=== PATIENT | male | born 1945 | race Caucasian/White ===

== ENCOUNTER 2020-03-28 01:19 | Inpatient (IN) | payer MEDICARE, OTHER ==
[~2020-03-28] VITALS: Ht 165.1 cm; Wt 52.7 kg
[2020-03-28] MEDS ORDERED: ONDANSETRON PF 4 MG/2 ML VIAL. IVP ONE (02:00)
[2020-03-28] MEDS ORDERED: ASPIRIN CHEWABLE 81 MG TABLET. PO ONE (02:00)
--- NOTE | 2020-03-28 02:22 | RAD ---
EXAM: AP View of the chest DATE: 03/28/2020 1:25 AM INDICATION: Shortness of breath COMPARISON: No Prior FINDINGS: The heart is not enlarged. Mediastinal and hilar contours are stable. Nodular opacity retrocardiac left lung base. No pleural effusion or pneumothorax. Nondisplaced right posterolateral seventh rib fractures seen, likely chronic. IMPRESSION: 1. Nodular opacity retrocardiac left lung base. Recommend short interval follow-up radiographs to assess for resolution or further evaluation with nonemergent CT to exclude underlying mass. Electronically signed by: Gary Harris MD (03/28/2020 2:20 AM) [facility]
[2020-03-28] MEDS: MORPHINE SULFATE 2 MG/ML VIAL. IV/SQ PRN ×2 (02:24→05:56)
[2020-03-28 02:32] LABS: BASO # 0.1 x10^3/uL (0.0-0.2); BASO % 1 % (0-3); EOS # 0.2 x10^3/uL (0.0-0.7); EOS % 2 % (0-3); HEMATOCRIT 34.8 % (39.0-53.0); HEMOGLOBIN 11.5 g/dL (13.0-17.5); LYMPH # 1.1 x10^3/uL (1.0-4.8); LYMPH % 14 % (24-48); MEAN CORPUSCULAR HEMOGLOBIN 31 pg (25-35); MEAN CORPUSCULAR HGB CONC 33 g/dL (31-37); MEAN CORPUSCULAR VOLUME 92 fL (79-100); MONO # 0.4 x10^3/uL (0.0-1.1); MONO % 5 % (0-9); NEUT # 6.3 x10^3/uL (1.8-7.7); NEUT % 79 % (31-73); PLATELET COUNT 301 x10^3/uL (140-400); RED BLOOD COUNT 3.77 x10^6/uL (4.30-5.70); RED CELL DISTRIBUTION WIDTH 15.9 % (11.5-14.5)
[2020-03-28 02:41] LABS: CALCIUM 9.3 mg/dL (8.5-10.1); GFR 73.5; POTASSIUM 4.2 mmol/L (3.5-5.1)
[2020-03-28 02:46] LABS: ALBUMIN 3.2 g/dL (3.4-5.0); ALBUMIN/GLOBULIN RATIO 0.8 (1.0-1.7); MAGNESIUM 1.6 mg/dL (1.8-2.4); TOTAL BILIRUBIN 0.2 mg/dL (0.2-1.0); TOTAL PROTEIN 7.3 g/dL (6.4-8.2)
[2020-03-28 02:51] LABS: BILIRUBIN,URINE NEGATIVE (NEG); CLARITY,URINE CLEAR; COLOR,URINE YELLOW; NITRITE,URINE NEGATIVE (NEG); PH,URINE 5.5 (<5.0-8.0); PROTEIN,URINE NEGATIVE (NEG-TRACE); UROBILINOGEN,URINE 0.2 mg/dL (0.2 mg/dL)
[2020-03-28 03:01] LABS: SQUAMOUS EPITHELIAL CELL,UR OCC /LPF
[2020-03-28 03:02] LABS: AMORPHOUS SEDIMENT,UR PRESENT /HPF; BACTERIA,URINE 0 /HPF (0-FEW); RBC,URINE 0 /HPF (0-2); WBC,URINE OCC /HPF (0-4)
--- NOTE | 2020-03-28 03:38 | PHYS DOC ---
General Adult EDM: Chief Complaint: SHORTNESS OF BREATH HPI: HPI: Patient is a 73 year old male who presents with complaint of chest pain and shortness of breath that started earlier in the evening. Patient rates the pain in his chest at a 10 out of 10. Patient states that nothing improves this pain. Patient arrived via EMS from medical [place] and had just been discharged from [facility] [place]. [] Review of Systems: Review of Systems: Constitutional: Denies fever or chills. [] Respiratory: Complains of productive cough with shortness of breath. [] Cardiovascular: Complains of chest pain. [] GI: Denies abdominal pain, nausea, vomiting, bloody stools or diarrhea. [] Neurologic: Denies headache, focal weakness or sensory changes. [] A full 10 point review of systems has been reviewed and is otherwise negative. Heart Score: Risk Factors: Risk Factors: DM, Current or recent (<one month) smoker, HTN, HLP, family history of CAD, obesity. Risk Scores: Score 0 - 3: 2.5% MACE over next 6 weeks - Discharge Home Score 4 - 6: 20.3% MACE over next 6 weeks - Admit for Clinical Observation Score 7 - 10: 72.7% MACE over next 6 weeks - Early Invasive Strategies Current Medications: Current Medications Medications (Trade) Dose Ordered Sig/[facility] Start Time Stop Time Status Last Admin Dose Admin Aspirin (Aspirin Chewable) 324 mg 1X ONCE 03/28/20 02:00 03/28/20 02:01 DC 03/28/20 02:25 324 MG Morphine Sulfate (Morphine Sulfate) 2 mg PRN Q15MIN PRN 03/28/20 01:30 03/29/20 01:29 03/28/20 02:24 2 MG Ondansetron HCl (Zofran) 4 mg 1X ONCE 03/28/20 02:00 03/28/20 02:01 DC 03/28/20 02:24 4 MG Allergies: Allergies: Allergies Coded Allergies Type Severity Reaction Last Updated Verified Sulfa (Sulfonamide Antibiotics) Allergy Intermediate 03/28/20 Yes simvastatin Allergy Intermediate 03/28/20 Yes Physical Exam: PE: Constitutional: Well developed, well nourished, no acute distress, non-toxic appearance. [] HENT: Normocephalic, atraumatic, bilateral external ears normal, oropharynx moist, no oral exudates, nose normal. [] Eyes: PERRLA, EOMI, conjunctiva normal, no discharge. [] Neck: Normal range of motion, no tenderness, supple. [] Cardiovascular: Regular rate and rhythm [] Lungs & Thorax: Bilateral breath sounds clear to auscultation [] Abdomen: Bowel sounds normal, soft, no tenderness. [] Skin: Warm, dry, no erythema, no rash. [] Extremities: No tenderness, no cyanosis, no clubbing, ROM intact, no edema. [] Neurologic: Alert and oriented X 3, no focal deficits noted. [] Current Patient Data: Labs: Laboratory Tests Test 03/28/20 02:20 03/28/20 02:45 White Blood Count 8.0 x10^3/uL (4.0-11.0) Red Blood Count 3.77 x10^6/uL (4.30-5.70) L Hemoglobin 11.5 g/dL (13.0-17.5) L Hematocrit 34.8 % (39.0-53.0) L Mean Corpuscular Volume 92 fL (79-100) Mean Corpuscular Hemoglobin 31 pg (25-35) Mean Corpuscular Hemoglobin Concent 33 g/dL (31-37) Red Cell Distribution Width 15.9 % (11.5-14.5) H Platelet Count 301 x10^3/uL (140-400) Neutrophils (%) (Auto) 79 % (31-73) H Lymphocytes (%) (Auto) 14 % (24-48) L Monocytes (%) (Auto) 5 % (0-9) Eosinophils (%) (Auto) 2 % (0-3) Basophils (%) (Auto) 1 % (0-3) Neutrophils # (Auto) 6.3 x10^3/uL (1.8-7.7) Lymphocytes # (Auto) 1.1 x10^3/uL (1.0-4.8) Monocytes # (Auto) 0.4 x10^3/uL (0.0-1.1) Eosinophils # (Auto) 0.2 x10^3/uL (0.0-0.7) Basophils # (Auto) 0.1 x10^3/uL (0.0-0.2) Sodium Level 142 mmol/L (136-145) Potassium Level 4.2 mmol/L (3.5-5.1) Chloride Level 102 mmol/L (98-107) Carbon Dioxide Level 32 mmol/L (21-32) Anion Gap 8 (6-14) Blood Urea Nitrogen 22 mg/dL (8-26) Creatinine 1.0 mg/dL (0.7-1.3) Estimated GFR (Cockcroft-Gault) 73.5 BUN/Creatinine Ratio 22 (6-20) H Glucose Level 155 mg/dL (70-99) H Calcium Level 9.3 mg/dL (8.5-10.1) Magnesium Level 1.6 mg/dL (1.8-2.4) L Total Bilirubin 0.2 mg/dL (0.2-1.0) Aspartate Amino Transferase (AST) 32 U/L (15-37) Alanine Aminotransferase (ALT) 68 U/L (16-63) H Alkaline Phosphatase 176 U/L (46-116) H Troponin I Quantitative < 0.017 ng/mL (0.000-0.055) PC-Uex-A-Type Natriuretic Peptide 93 pg/mL (0-124) Total Protein 7.3 g/dL (6.4-8.2) Albumin 3.2 g/dL (3.4-5.0) L Albumin/Globulin Ratio 0.8 (1.0-1.7) L Lipase 41 U/L (73-393) L Urine Collection Type Unknown Urine Color Yellow Urine Clarity Clear Urine pH 5.5 (<5.0-8.0) Urine Specific [place] 1.020 (1.000-1.030) Urine Protein Negative mg/dL (NEG-TRACE) Urine Glucose (UA) Negative mg/dL (NEG) Urine Ketones (Stick) Trace mg/dL (NEG) Urine Blood Negative (NEG) Urine Nitrite Negative (NEG) Urine Bilirubin Negative (NEG) Urine Urobilinogen Dipstick 0.2 mg/dL (0.2 mg/dL) Urine Leukocyte Esterase Negative (NEG) Urine RBC 0 /HPF (0-2) Urine WBC Occ /HPF (0-4) Urine Squamous Epithelial Cells Occ /LPF Urine Amorphous Sediment Present /HPF Urine Bacteria 0 /HPF (0-FEW) Urine Mucus Slight /LPF Laboratory Tests 03/28/20 02:20 Laboratory Tests 03/28/20 02:20 Vital Signs: Vital Signs Date Time Temp Pulse Resp B/P (MAP) Pulse Ox O2 Delivery O2 Flow Rate FiO2 03/28/20 02:24 19 Nasal Cannula 2.0 03/28/20 01:20 98.3 103 154/74 (100) 88 98.3 EKG: EKG: [] Radiology/Procedures: Radiology/Procedures: []PROCEDURE: PORTABLE CHEST 1V EXAM: AP View of the chest DATE: 03/28/2020 1:25 AM INDICATION: Shortness of breath COMPARISON: No Prior FINDINGS: The heart is not enlarged. Mediastinal and hilar contours are stable. Nodular opacity retrocardiac left lung base. No pleural effusion or pneumothorax. Nondisplaced right posterolateral seventh rib fractures seen, likely chronic. IMPRESSION: 1. Nodular opacity retrocardiac left lung base. Recommend short interval follow-up radiographs to assess for resolution or further evaluation with nonemergent CT to exclude underlying mass. Electronically signed by: Gary Harris MD (03/28/2020 2:20 AM) [facility] Course & Med Decision Making: Course & Med Decision Making Pertinent Labs and Imaging studies reviewed. (See chart for details) [] Dragon Disclaimer: Dragon Disclaimer: This electronic medical record was generated, in whole or in part, using a voice recognition dictation system. Departure Departure Impression: Primary Impression: Chest pain Qualified Codes: R07.9 - Chest pain, unspecified Additional Impression: Person under investigation for COVID-19 Disposition: ADMITTED INPATIENT Admitting Physician: JOCELYNN Condition: IMPROVED Referrals: NO PCP (PCP) ANGELITA MEJIA Jr., DO Mar 28, 2020 03:38
[2020-03-28] MEDS ORDERED: NITROGLYCERIN SUBLINGUAL 0.4 MG BOTTLE OF 25. SL PRN (03:45)
[2020-03-28] MEDS ORDERED: ONDANSETRON PF 4 MG/2 ML VIAL. IV PRN (03:45)
[2020-03-28 05:25] VITALS: BP 143/74
--- NOTE | 2020-03-28 06:08 | EKG ---
[facility] [address] [place] [address] Test Date: 2020-03-28 Test Time: 01:30:43 Pat Name: BALJIT PERALES Department: Room: 3 1 Gender: M Developer Analyst: : 1947-01-26 Requested By: ANGELITA MEJIA Order Number: [id number] Reading MD: Mike Wright MD Measurements Intervals [place] Rate: 99 P: 33 WI: 136 QRS: -37 QRSD: 90 T: 66 QT: 350 QTc: 455 Interpretive Statements SINUS RHYTHM NON-SPECIFIC ST/T CHANGES Electronically Signed On 04-04-2020 9:59:56 CDT by Mike Wright MD
[2020-03-28 07:00] VITALS: BP_SYST 109; BP_SYST 130; BP_DIAS 59; BP_DIAS 76
--- NOTE | 2020-03-28 08:49 | PDOC2 ---
STEPHENIE LOVE PATTERN LEASE INSPECTOR 03/28/20 0849: CARDIAC CONSULT DATE OF CONSULT Date of Consult DATE: 03/28/20 TIME: 08:45 REASON FOR CONSULT Reason for Consult: Chest pain REFERRING PHYSICIAN Referring Physician: Harmony SOURCE Source: Chart review, Patient HISTORY OF PRESENT ILLNESS HISTORY OF PRESENT ILLNESS This is a 73 yo male admitted for complains of chest pain. I talked to him and he was just stuttering. Unclear what his mental baseline is as he could not tell me any details. He was also noted with SOA upon admission but so far he has not been having any chest pain and in no distress. Apparently he is known for significant anxiety diorder and actually has aopioid pump implant with dilaudid. He was recently discharge from [facility] and unclear why he was there as he could not provide any details. He was [facility] [place] [facility] which apprently per he stayed only for about 12 hours then was brought to [facility]. He is known for hospital hopping per . His troponin has been nml and no acute EKG changes. Per [facility] records he has hx of CAD but no noted records of echo nor ischemic workup. PAST MEDICAL HISTORY Cardiovascular: CAD, HTN, Hyperlipidemia, Other (venous insufficiency, lymphedema; PAD) Pulmonary: COPD CENTRAL NERVOUS SYSTEM: Periperal neuropathy Heme/Onc: Anemia NOS Psych: Anxiety Musculoskeletal: Osteoarthritis Renal/: Other (nephrolithiasis) Endocrine: Diabetes (2) Dermatology: Other (stasis dermatitis; sacral wound) PAST SURGICAL HISTORY Past Surgical History: Appendectomy, Arthroscopy (RAKA), Cholecystectomy, Other (vasectomy, penile implant?; left ureteral stent implant) FAMILY HISTORY Family History: Family History Unknown SOCIAL HISTORY Smoke: Quit ALCOHOL: none Lives: Jail CURRENT MEDICATIONS CURRENT MEDICATIONS Current Medications Medications (Trade) Dose Ordered Sig/Caitlyn Route PRN Reason Start Time Stop Time Status Last Admin Dose Admin Aspirin (Aspirin Chewable) 324 mg 1X ONCE PO 03/28/20 02:00 03/28/20 02:01 DC 03/28/20 02:25 Morphine Sulfate (Morphine Sulfate) 2 mg PRN Q15MIN PRN IV/SQ PAIN GREATER THAN 3/10 03/28/20 01:30 03/29/20 01:29 03/28/20 05:56 Ondansetron HCl (Zofran) 4 mg 1X ONCE IVP 03/28/20 02:00 03/28/20 02:01 DC 03/28/20 02:24 ALLERGIES ALLERGIES: Coded Allergies: Sulfa (Sulfonamide Antibiotics) (Verified Allergy, Intermediate, 03/28/20) simvastatin (Verified Allergy, Intermediate, 03/28/20) ROS Review of System unobtainable, pt appears to be selectively answering and currently stutterring. He was able to convey wanting pain medications to the PCP PHYSICAL EXAM General: Alert, No acute distress HEENT: Atraumatic, Mucous membr. moist/pink Lungs: Clear to auscultation, Normal air movement Heart: Regular rate (SR), Normal S1, Normal S2 Abdomen: Soft, Other (cachectic) Extremities: Other (RAKA, LLE brownish hyperpigmentation) Skin: Other (sacral wound) Neuro: Other (sttuters) Psych/Mental Status: Other (flat affect) MUSCULOSKELETAL: Osteoarthritic changes both hands VITALS/I&O VITALS/I&O: Vital Signs Date Time Temp Pulse Resp B/P (MAP) Pulse Ox O2 Delivery O2 Flow Rate FiO2 03/28/20 07:00 97.2 73 18 109/59 (76) 99 Nasal Cannula 2.0 97.2 I & O 03/27/20 03/27/20 03/28/20 15:00 23:00 07:00 Intake Total 50 ml Balance 50 ml LABS Lab: Laboratory Tests Test 03/28/20 02:20 03/28/20 02:45 03/28/20 06:40 White Blood Count 8.0 x10^3/uL (4.0-11.0) Red Blood Count 3.77 x10^6/uL (4.30-5.70) L Hemoglobin 11.5 g/dL (13.0-17.5) L Hematocrit 34.8 % (39.0-53.0) L Mean Corpuscular Volume 92 fL (79-100) Mean Corpuscular Hemoglobin 31 pg (25-35) Mean Corpuscular Hemoglobin Concent 33 g/dL (31-37) Red Cell Distribution Width 15.9 % (11.5-14.5) H Platelet Count 301 x10^3/uL (140-400) Neutrophils (%) (Auto) 79 % (31-73) H Lymphocytes (%) (Auto) 14 % (24-48) L Monocytes (%) (Auto) 5 % (0-9) Eosinophils (%) (Auto) 2 % (0-3) Basophils (%) (Auto) 1 % (0-3) Neutrophils # (Auto) 6.3 x10^3/uL (1.8-7.7) Lymphocytes # (Auto) 1.1 x10^3/uL (1.0-4.8) Monocytes # (Auto) 0.4 x10^3/uL (0.0-1.1) Eosinophils # (Auto) 0.2 x10^3/uL (0.0-0.7) Basophils # (Auto) 0.1 x10^3/uL (0.0-0.2) Sodium Level 142 mmol/L (136-145) Potassium Level 4.2 mmol/L (3.5-5.1) Chloride Level 102 mmol/L (98-107) Carbon Dioxide Level 32 mmol/L (21-32) Anion Gap 8 (6-14) Blood Urea Nitrogen 22 mg/dL (8-26) Creatinine 1.0 mg/dL (0.7-1.3) Estimated GFR (Cockcroft-Gault) 73.5 BUN/Creatinine Ratio 22 (6-20) H Glucose Level 155 mg/dL (70-99) H Calcium Level 9.3 mg/dL (8.5-10.1) Magnesium Level 1.6 mg/dL (1.8-2.4) L Total Bilirubin 0.2 mg/dL (0.2-1.0) Aspartate Amino Transferase (AST) 32 U/L (15-37) Alanine Aminotransferase (ALT) 68 U/L (16-63) H Alkaline Phosphatase 176 U/L (46-116) H Troponin I Quantitative < 0.017 ng/mL (0.000-0.055) < 0.017 ng/mL (0.000-0.055) RE-Tny-U-Type Natriuretic Peptide 93 pg/mL (0-124) Total Protein 7.3 g/dL (6.4-8.2) Albumin 3.2 g/dL (3.4-5.0) L Albumin/Globulin Ratio 0.8 (1.0-1.7) L Lipase 41 U/L (73-393) L Urine Collection Type Unknown Urine Color Yellow Urine Clarity Clear Urine pH 5.5 (<5.0-8.0) Urine Specific [place] 1.020 (1.000-1.030) Urine Protein Negative mg/dL (NEG-TRACE) Urine Glucose (UA) Negative mg/dL (NEG) Urine Ketones (Stick) Trace mg/dL (NEG) Urine Blood Negative (NEG) Urine Nitrite Negative (NEG) Urine Bilirubin Negative (NEG) Urine Urobilinogen Dipstick 0.2 mg/dL (0.2 mg/dL) Urine Leukocyte Esterase Negative (NEG) Urine RBC 0 /HPF (0-2) Urine WBC Occ /HPF (0-4) Urine Squamous Epithelial Cells Occ /LPF Urine Amorphous Sediment Present /HPF Urine Bacteria 0 /HPF (0-FEW) Urine Mucus Slight /LPF Laboratory Tests 03/28/20 02:20 Laboratory Tests 03/28/20 02:20 ASSESSMENT/PLAN ASSESSMENT/PLAN 1. Atypical chest pain: suspect anxiety and MSK, trops nml no EKG changes. no CP overnight 2. Chronic pain with implanted dilaudid intrathecal pump 3. 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 CAD: See below. Past stent 5. HTN: controlled 6. DM2/HLP 7. Covid PUI 8. Anxiety/panic disorder 9. ?noted with transient alteration of awareness? Recommendations 1. Continue secondary prevention. ASA/plavix 2. Will consider for TTE if negative for covid. Presently no cardiac symptoms and seems to be seeking opioid, continue to treat medically 3. Follow up with outpt automatic spooler operator Denise levin records reviewed Pt had PCI on 12/27/2018 noted with critical mid distal LAD lesion, widely patent proximal LAD with mild to moderate restenosis, moderately severe stenosis to proximal OMB 2, total occlusion of proximal mid RCA with left to right collateral filling a large territory distribution of the right posterior descending and lateral branches. He had PCI to mid to distal desceding LAD with overlapping CORNELIUS. A referral was also mad to Dr. Mohit Rob opinion on complex PCI of RCA and OMB. No further reports of intervention so assumed that this has been treated medically. EF at that time estimated at 55%. MALLIKA AVALOS MD 03/28/20 1982: CARDIAC CONSULT ASSESSMENT/PLAN ASSESSMENT/PLAN Patient seen and evaluated I agree with our nurse practitioners assessment and plan as above. Atypical chest pain. Normal troponin. No ischemic EKG changes. Catheterization records as noted above. Continue medical treatment. Normal ejection fraction at that time. Chronic pain syndrome as noted above. Hypertension. Controlled on present treatment. COVID testing pending. Thank you for allowing us to participate in the care of your patient. STEPHENIE LOVE APRN Mar 28, 2020 08:49 MALLIKA AVALOS MD Mar 28, 2020 17:38
[2020-03-28] MEDS ORDERED: ACET325T21 PO (09:05)
[2020-03-28] MEDS ORDERED: LEXAPRO5 MG PO (09:05)
[2020-03-28] MEDS ORDERED: HYDR4TAB PO (09:05)
[2020-03-28] MEDS ORDERED: ASPI-612 PO (09:05)
[2020-03-28] MEDS ORDERED: CARV3.1210 PO (09:05)
[2020-03-28] MEDS ORDERED: AMLO5TAB10 PO (09:05)
[2020-03-28] MEDS ORDERED: TRAZ-123 PO (09:05)
[2020-03-28] MEDS ORDERED: CLON-77 PO (09:05)
[2020-03-28] MEDS ORDERED: CLOP75TA PO (09:05)
[2020-03-28] MEDS ORDERED: GABA800T5 PO (09:05)
[2020-03-28] MEDS ORDERED: ACETAMINOPHEN 325 MG TABLET. PO PRN (09:15)
[2020-03-28] MEDS: clonazePAM 0.5 MG TABLET PO SCH ×2 (09:31→19:50)
[2020-03-28] MEDS: HYDROmorphone 4 MG TABLET PO SCH ×3 (09:32→19:50)
--- NOTE | 2020-03-28 09:37 | EKG ---
[facility] [address] [place] [address] Test Date: 2020-03-28 Test Time: 09:27:06 Pat Name: BALJIT PERALES Department: Room: 3 1 Gender: M Podiatric Medicine Doctor: JENAE : 1947-01-26 Requested By: STEPHENIE LOVE Order Number: [id number] Reading MD: Mike Wirght MD Measurements Intervals [place] Rate: 78 P: 90 TX: 138 QRS: -27 QRSD: 90 T: 60 QT: 382 QTc: 439 Interpretive Statements SINUS RHYTHM Electronically Signed On 04-04-2020 10:01:29 CDT by Mike Wright MD
--- NOTE | 2020-03-28 09:50 | NUR ---
Wound Care Wound Type/Assessment: wound photo assessed, as pt is Covid-pending. From photo, sacrococcygeal area pink and peeling, with scar tissue present, but no open areas noted. Will re-evaluate after testing comes back. Treatment Recommendations/Plan: Recommend Calazime cream or A&D ointment as barrier. Offloading surface/device: P500 bed, turn Q2 hours Recommended Referrals/Tests: N/A Discharge Recommendations for dressings: Calazime cream or A&D ointment as barrier
--- NOTE | 2020-03-28 10:18 | NUR ---
Wound Care Wound care consult for coccyx wound. Due to pending COVID 19 test, WC assessed wound via photograph. coccyx appears to be pink, dry and peeling with no open areas noted. Discussed with Joy DANGELO, continue calazime barrier cream unless area is peeling from dryness, then switch to A&D ointment. TQ2H and order P500 bed if needed. WC will reassess after C19 results are back.
[2020-03-28 11:00] VITALS: BP 113/59
--- NOTE | 2020-03-28 11:02 | NUR ---
SS following for discharge planning. SS reviewed pt chart and discussed with pt RN. Pt is from [facility], ; fax [phone]. SS contacted [facility] and was notified by Buck Iyer that pt was sent to the hospital the same day he admitted for prison and rehabilitation and was not technically admitted. He reported that pt was sent to them from [facility]. [facility] faxing records to unit. Pt is COVID19 pending. SS will continue to follow for discharge planning.
[2020-03-28] MEDS: GABAPENTIN 400 MG CAPSULE. PO SCH ×2 (13:34→19:50)
--- NOTE | 2020-03-28 14:14 | PDOC1 ---
History and Physical Date of Admission Date of Admission 03/28/2020 Identification/Chief Complaint Chief Complaint Chest pain as per ER Source Source: Chart review, Patient History of Present Illness History of Present Illness Patient is a 74-year-old gentleman who apparently had a very prolonged hospital stay at [facility] and was discharged to the medical [facility] where he was transferred and stayed approximately 12 hours before being transferred to our emergency department. Details of his hospital stay are obscure and the patient is a very poor historian at the present time the patient is laying in bed in no apparent distress patient mumbles the first initial words and subsequently was able to respond some questions very simple phrases. Patient was asked about chest discomfort which he denied at the present time he denied any cough sputum production no fever no chills no headache no cold-like symptoms. Patient did not have palpitations no nausea vomiting diarrhea no other complaints were v oiced except for generalized pain. The patient has a medical doctor md/medical director implanted in his abdominal cavity and he could not elaborate on what it was later we found out that it was a Dilaudid pump. Details of his medical history are obscure as stated before the patient is a quite poor poor historian he has right below-knee amputation and evidence of venous insufficiency changes on his skin on the left lower extremity. The patient does not present cyanosis and it is warm to touch the lower extremity. Patient was admitted at the request of the ER for chest pain evaluation despite the patient not having chest discomfort at the present time Of note the patient was quite animated when asked about questions or if there was something I needed to address and he immediately became quite clear in his speech and said: "can I have my pain medications back", plan of care explained in detail. no other concerns voiced Past Medical History Cardiovascular: CAD, HTN, Hyperlipidemia, Other (venous insufficiency, lymphedema; PAD) CENTRAL NERVOUS SYSTEM: Periperal neuropathy Psych: Anxiety Renal/: Other (nephrolithiasis) Endocrine: Diabetes (2) Dermatology: Other (stasis dermatitis) Past Surgical History Past Surgical History: Appendectomy, Arthroscopy (RAKA), Other (vasectomy, penile implant?; left ureteral stent implant) Current Problem List Problem List Problems Medical Problems: (1) Chest pain Status: Acute (2) Person under investigation for COVID-19 Status: Acute Current Medications Current Medications Current Medications Medications (Trade) Dose Ordered Sig/Caitlyn Start Time Stop Time Status Last Admin Dose Admin Acetaminophen (Tylenol) 650 mg PRN Q4HRS PRN 03/28/20 09:15 Amlodipine Besylate (Norvasc) 5 mg DAILY 03/29/20 09:00 Aspirin (Aspirin Chewable) 324 mg 1X ONCE 03/28/20 02:00 03/28/20 02:01 DC 03/28/20 02:25 324 MG Aspirin (Ecotrin) 81 mg DAILY 03/29/20 09:00 Carvedilol (Coreg) 3.125 mg BIDWMEALS 03/28/20 17:00 Citalopram Hydrobromide (CeleXA) 10 mg DAILY 03/29/20 09:00 Clonazepam (KlonoPIN) 0.5 mg BID 03/28/20 10:00 03/28/20 09:31 0.5 MG Clopidogrel Bisulfate (Plavix) 75 mg DAILY 03/29/20 09:00 Gabapentin (Neurontin) 400 mg TID 03/28/20 14:00 03/28/20 13:34 400 MG Hydromorphone HCl (Dilaudid) 2 mg TID 03/28/20 10:00 03/28/20 13:34 2 MG Morphine Sulfate (Morphine Sulfate) 2 mg PRN Q15MIN PRN 03/28/20 01:30 03/29/20 01:29 03/28/20 05:56 2 MG Nitroglycerin (Nitrostat) 0.4 mg PRN Q5MIN PRN 03/28/20 03:45 03/29/20 03:44 Ondansetron HCl (Zofran) 4 mg PRN Q8HRS PRN 03/28/20 03:45 03/29/20 03:44 Trazodone HCl (Desyrel) 200 mg QHS 03/28/20 21:00 Allergies Allergies Allergies Coded Allergies Type Severity Reaction Last Updated Verified Sulfa (Sulfonamide Antibiotics) Allergy Intermediate 03/28/20 Yes simvastatin Allergy Intermediate 03/28/20 Yes ROS Review of System CONSTITUTIONAL: No fever or chills EYES: No recent changes SKIN: No rash or itching CARDIOVASCULAR: No chest pain, syncope, palpitations, or edema RESPIRATORY: No SOB or cough GASTROINTESTINAL: No nausea, vomiting or abdominal pain NEUROLOGICAL: No headaches or weakness ENDOCRINE: No cold or heat intolerance GENITOURINARY: No urgency or frequency of urination MUSCULOSKELETAL: No back pain or joint pain LYMPHATICS: No enlarged lymph nodes PSYCHIATRIC: No anxiety or depression Physical Exam Physical Exam GEN.: No apparent distress. Alert and oriented in person. Thin looking HEENT: Head is normocephalic, atraumatic NECK: Supple. LUNGS: Clear to auscultation. HEART: RRR, S1, S2 present. Peripheral pulses intact ABDOMEN: Soft, nontender. Positive bowel sounds. EXTREMITIES: Without any cyanosis. Right below-knee amputation hyperpigmented discoloration over the left lower extremity NEUROLOGIC: Normal speech, normal tone cranial nerves II to XII intact no motor or sensory deficit PSYCHIATRIC: Normal affect, normal mood. SKIN: No ulcerations Vitals Vitals Vital Signs Date Time Temp Pulse Resp B/P (MAP) Pulse Ox O2 Delivery O2 Flow Rate FiO2 03/28/20 11:00 97.7 77 18 113/59 (77) 96 Nasal Cannula 2.0 97.7 Labs Labs Laboratory Tests Test 03/28/20 02:20 03/28/20 02:45 03/28/20 06:40 03/28/20 09:40 White Blood Count 8.0 x10^3/uL (4.0-11.0) Red Blood Count 3.77 x10^6/uL (4.30-5.70) Hemoglobin 11.5 g/dL (13.0-17.5) Hematocrit 34.8 % (39.0-53.0) Mean Corpuscular Volume 92 fL (79-100) Mean Corpuscular Hemoglobin 31 pg (25-35) Mean Corpuscular Hemoglobin Concent 33 g/dL (31-37) Red Cell Distribution Width 15.9 % (11.5-14.5) Platelet Count 301 x10^3/uL (140-400) Neutrophils (%) (Auto) 79 % (31-73) Lymphocytes (%) (Auto) 14 % (24-48) Monocytes (%) (Auto) 5 % (0-9) Eosinophils (%) (Auto) 2 % (0-3) Basophils (%) (Auto) 1 % (0-3) Neutrophils # (Auto) 6.3 x10^3/uL (1.8-7.7) Lymphocytes # (Auto) 1.1 x10^3/uL (1.0-4.8) Monocytes # (Auto) 0.4 x10^3/uL (0.0-1.1) Eosinophils # (Auto) 0.2 x10^3/uL (0.0-0.7) Basophils # (Auto) 0.1 x10^3/uL (0.0-0.2) Sodium Level 142 mmol/L (136-145) Potassium Level 4.2 mmol/L (3.5-5.1) Chloride Level 102 mmol/L (98-107) Carbon Dioxide Level 32 mmol/L (21-32) Anion Gap 8 (6-14) Blood Urea Nitrogen 22 mg/dL (8-26) Creatinine 1.0 mg/dL (0.7-1.3) Estimated GFR (Cockcroft-Gault) 73.5 BUN/Creatinine Ratio 22 (6-20) Glucose Level 155 mg/dL (70-99) Calcium Level 9.3 mg/dL (8.5-10.1) Magnesium Level 1.6 mg/dL (1.8-2.4) Total Bilirubin 0.2 mg/dL (0.2-1.0) Aspartate Amino Transf (AST/SGOT) 32 U/L (15-37) Alanine Aminotransferase (ALT/SGPT) 68 U/L (16-63) Alkaline Phosphatase 176 U/L (46-116) Troponin I Quantitative < 0.017 ng/mL (0.000-0.055) < 0.017 ng/mL (0.000-0.055) < 0.017 ng/mL (0.000-0.055) OJ-Uvc-S-Type Natriuretic Peptide 93 pg/mL (0-124) Total Protein 7.3 g/dL (6.4-8.2) Albumin 3.2 g/dL (3.4-5.0) Albumin/Globulin Ratio 0.8 (1.0-1.7) Lipase 41 U/L (73-393) Urine Collection Type Unknown Urine Color Yellow Urine Clarity Clear Urine pH 5.5 (<5.0-8.0) Urine Specific [place] 1.020 (1.000-1.030) Urine Protein Negative mg/dL (NEG-TRACE) Urine Glucose (UA) Negative mg/dL (NEG) Urine Ketones (Stick) Trace mg/dL (NEG) Urine Blood Negative (NEG) Urine Nitrite Negative (NEG) Urine Bilirubin Negative (NEG) Urine Urobilinogen Dipstick 0.2 mg/dL (0.2 mg/dL) Urine Leukocyte Esterase Negative (NEG) Urine RBC 0 /HPF (0-2) Urine WBC Occ /HPF (0-4) Urine Squamous Epithelial Cells Occ /LPF Urine Amorphous Sediment Present /HPF Urine Bacteria 0 /HPF (0-FEW) Urine Mucus Slight /LPF Laboratory Tests Test 03/28/20 02:20 03/28/20 02:45 03/28/20 06:40 03/28/20 09:40 White Blood Count 8.0 x10^3/uL (4.0-11.0) Red Blood Count 3.77 x10^6/uL (4.30-5.70) Hemoglobin 11.5 g/dL (13.0-17.5) Hematocrit 34.8 % (39.0-53.0) Mean Corpuscular Volume 92 fL (79-100) Mean Corpuscular Hemoglobin 31 pg (25-35) Mean Corpuscular Hemoglobin Concent 33 g/dL (31-37) Red Cell Distribution Width 15.9 % (11.5-14.5) Platelet Count 301 x10^3/uL (140-400) Neutrophils (%) (Auto) 79 % (31-73) Lymphocytes (%) (Auto) 14 % (24-48) Monocytes (%) (Auto) 5 % (0-9) Eosinophils (%) (Auto) 2 % (0-3) Basophils (%) (Auto) 1 % (0-3) Neutrophils # (Auto) 6.3 x10^3/uL (1.8-7.7) Lymphocytes # (Auto) 1.1 x10^3/uL (1.0-4.8) Monocytes # (Auto) 0.4 x10^3/uL (0.0-1.1) Eosinophils # (Auto) 0.2 x10^3/uL (0.0-0.7) Basophils # (Auto) 0.1 x10^3/uL (0.0-0.2) Sodium Level 142 mmol/L (136-145) Potassium Level 4.2 mmol/L (3.5-5.1) Chloride Level 102 mmol/L (98-107) Carbon Dioxide Level 32 mmol/L (21-32) Anion Gap 8 (6-14) Blood Urea Nitrogen 22 mg/dL (8-26) Creatinine 1.0 mg/dL (0.7-1.3) Estimated GFR (Cockcroft-Gault) 73.5 BUN/Creatinine Ratio 22 (6-20) Glucose Level 155 mg/dL (70-99) Calcium Level 9.3 mg/dL (8.5-10.1) Magnesium Level 1.6 mg/dL (1.8-2.4) Total Bilirubin 0.2 mg/dL (0.2-1.0) Aspartate Amino Transf (AST/SGOT) 32 U/L (15-37) Alanine Aminotransferase (ALT/SGPT) 68 U/L (16-63) Alkaline Phosphatase 176 U/L (46-116) Troponin I Quantitative < 0.017 ng/mL (0.000-0.055) < 0.017 ng/mL (0.000-0.055) < 0.017 ng/mL (0.000-0.055) RP-Ycg-R-Type Natriuretic Peptide 93 pg/mL (0-124) Total Protein 7.3 g/dL (6.4-8.2) Albumin 3.2 g/dL (3.4-5.0) Albumin/Globulin Ratio 0.8 (1.0-1.7) Lipase 41 U/L (73-393) Urine Collection Type Unknown Urine Color Yellow Urine Clarity Clear Urine pH 5.5 (<5.0-8.0) Urine Specific [place] 1.020 (1.000-1.030) Urine Protein Negative mg/dL (NEG-TRACE) Urine Glucose (UA) Negative mg/dL (NEG) Urine Ketones (Stick) Trace mg/dL (NEG) Urine Blood Negative (NEG) Urine Nitrite Negative (NEG) Urine Bilirubin Negative (NEG) Urine Urobilinogen Dipstick 0.2 mg/dL (0.2 mg/dL) Urine Leukocyte Esterase Negative (NEG) Urine RBC 0 /HPF (0-2) Urine WBC Occ /HPF (0-4) Urine Squamous Epithelial Cells Occ /LPF Urine Amorphous Sediment Present /HPF Urine Bacteria 0 /HPF (0-FEW) Urine Mucus Slight /LPF VTE Prophylaxis Ordered VTE Prophylaxis Devices: Yes VTE Pharmacological Prophylaxi: No Assessment/Plan Assessment/Plan Chest pain rule out ACS COVID-19 person under investigation History of CAD Chronic pain syndrome Dilaudid pump in his abdominal cavity Normocytic anemia Hyperglycemia Hypomagnesemia Plan Follow recommendations per workers compensation consultant Request medical records from [facility] regarding his last admission Further recommendations based on clinical course Resume home medication Supportive measures DVT prophylaxis with Lovenox Justicifation of Admission Dx: Justifications for Admission: Justification of Admission Dx: No MEME LAGOS MD Mar 28, 2020 14:14
[2020-03-28 15:00] VITALS: BP 117/67
[2020-03-28] MEDS: ENOXAPARIN 40 MG/0.4 ML SYRINGE. SQ SCH (16:08)
[2020-03-28] MEDS: CARVEDILOL 3.125 MG TABLET. PO SCH (16:09)
[2020-03-28 16:45] LABS: CHOLESTEROL/HDL RATIO 4.8
[2020-03-28 19:00] VITALS: BP 114/65
[2020-03-28] MEDS: traZODone 100 MG TABLET. PO SCH (19:50)
[2020-03-28] MEDS ORDERED: ATORVASTATIN CALCIUM 10 MG TABLET. PO SCH (21:00)
[2020-03-28 23:00] VITALS: BP 125/52
[2020-03-29 03:00] VITALS: BP 105/52
[2020-03-29 07:00] VITALS: BP 99/61
[2020-03-29] MEDS: CARVEDILOL 3.125 MG TABLET. PO SCH ×2 (08:00→16:09)
[2020-03-29] MEDS: HYDROmorphone 4 MG TABLET PO SCH ×4 (08:13→21:22)
[2020-03-29] MEDS: clonazePAM 0.5 MG TABLET PO SCH ×2 (08:13→21:22)
[2020-03-29] MEDS: ASPIRIN ENTERIC COATED 81 MG TABLET.DR. PO SCH (08:13)
[2020-03-29] MEDS: amLODIPine BESYLATE 5 MG TABLET PO SCH (08:13)
[2020-03-29] MEDS: CLOPIDOGREL BISULFATE 75 MG TABLET PO SCH (08:13)
[2020-03-29] MEDS: GABAPENTIN 400 MG CAPSULE. PO SCH ×4 (08:13→21:22)
[2020-03-29] MEDS: CITALOPRAM 10 MG TABLET. PO SCH (08:13)
[2020-03-29 11:00] VITALS: BP 127/62
--- NOTE | 2020-03-29 11:34 | PDOC ---
CARDIO Progress Notes Date and Time Date of Service 03/29/2020 Time of Evaluation 1050 Subjective Subjective: Other (no ditress, Pt dooes not want to talk) Vitals Vitals Vital Signs Date Time Temp Pulse Resp B/P (MAP) Pulse Ox O2 Delivery O2 Flow Rate FiO2 03/29/20 11:00 97.7 70 17 127/62 (83) 98 Nasal Cannula 2.0 97.7 Weight Weight [ ] Input and Output Intake and Output Intake and Output 03/29/20 06:59 Intake Total 360 ml Output Total 0 ml Balance 360 ml Intake Oral 360 ml Output Urine Total 0 ml # Voids 1 Physical Exam Chest: Symmetric Heart: RRR (SR) Extremities: No Edema, No Calf Tenderness Neurology: alert Other Exams Discussed with RN. Pt noted to be selectively talking particularly when wanting his pain medications. no distress, VSS Assessment Assessment 1. Atypical chest pain: suspect anxiety and MSK, trops nml no EKG changes. no CP overnight 2. Chronic pain with implanted dilaudid intrathecal pump 3. 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 CAD: 12/2018 as described below 5. HTN: controlled 6. DM2/HLP: LDL 185 7. Covid PUI 8. Anxiety/panic disorder 9. ?noted with transient alteration of awareness? Recommendations 1. Continue secondary prevention. ASA/plavix. 40 mg lipitor 2. Presently no cardiac symptoms and seems to be seeking opioid, continue to treat medically. Pt not cooperative only talks when wanting pain meds 3. Follow up with outpt wire taper, may DC nsg home and will psych f/u [facility] records reviewed Pt had PCI on 12/27/2018 noted with critical mid distal LAD lesion, widely patent proximal LAD with mild to moderate restenosis, moderately severe stenosis to proximal OMB 2, total occlusion of proximal mid RCA with left to right collateral filling a large territory distribution of the right posterior descending and lateral branches. He had PCI to mid to distal desceding LAD with overlapping CORNELIUS. A referral was also mad to Dr. Mohit Rob opinion on complex PCI of RCA and OMB. No further reports of intervention so assumed that this has been treated medically. EF at that time estimated at 55%. Justicifation of Admission Dx: Justifications for Admission: Justification of Admission Dx: No STEPHENIE LOVE BATTERY INSTALLER Mar 29, 2020 11:34
[2020-03-29] MEDS ORDERED: ATOR10TA60 PO (12:27)
--- NOTE | 2020-03-29 13:29 | NUR ---
SS following up with discharge planning. SS reviewed pt chart and discussed with pt RN. Pt is medically stable. COVID19 negative. Discharge order on the chart. SS spoke with Buck at [facility], , and Buck stated that pt was never technically admitted to there facility. He reported that pt was sent straight to the hospital when he arrived to there facility prior to admitting. Buck reported that they decline to accept him back and stated that we need to find new nursing home unit. SS discussed with pt RN. PT/OT ordered for recommendations as pt has no nursing home need. Pt transferring to [facility]. SS will continue to follow for discharge planning.
[2020-03-29 14:50] VITALS: BP 92/50
--- NOTE | 2020-03-29 15:36 | PDOC ---
PROGRESS NOTES Chief Complaint Chief Complaint Chest pain ACS ruled out COVID-19 negative History of CAD currently asymptomatic Chronic pain syndrome Dilaudid pump in his abdominal cavity Normocytic anemia Hyperglycemia Hypomagnesemia Plan Follow recommendations per edi consultant Reviewed medical records from [facility] regarding his last admission Further recommendations based on clinical course Patient was declined to go back to his institution case management helping with discharge planning Resume home medication Supportive measures DVT prophylaxis with Lovenox Cardiology recommendations are greatly appreciated and are as follows: Recommendations 1. Continue secondary prevention. ASA/plavix. 40 mg lipitor 2. Presently no cardiac symptoms and seems to be seeking opioid, continue to treat medically. Pt not cooperative only talks when wanting pain meds 3. Follow up with outpt seater assembler, may DC nsg home and will psych f/u [facility] records reviewed Pt had PCI on 12/27/2018 noted with critical mid distal LAD lesion, widely patent proximal LAD with mild to moderate restenosis, moderately severe stenosis to proximal OMB 2, total occlusion of proximal mid RCA with left to right col lateral filling a large territory distribution of the right posterior descending and lateral branches. He had PCI to mid to distal desceding LAD with overlapping CORNELIUS. A referral was also mad to Dr. Mohit Rob opinion on complex PCI of RCA and OMB. No further reports of intervention so assumed that this has been treated medically. EF at that time estimated at 55%. History of Present Illness History of Present Illness No acute events reported overnight, case discussed with nursing staff patient in no acute distress no complaints during my visit Vitals Vitals Vital Signs Date Time Temp Pulse Resp B/P (MAP) Pulse Ox O2 Delivery O2 Flow Rate FiO2 03/29/20 14:50 97.5 80 16 92/50 (64) 100 Nasal Cannula 97.5 03/29/20 11:00 2.0 Physical Exam Physical Exam GEN.: No apparent distress. Alert and oriented in person. Thin looking HEENT: Head is normocephalic, atraumatic NECK: Supple. LUNGS: Clear to auscultation. HEART: RRR, S1, S2 present. Peripheral pulses intact ABDOMEN: Soft, nontender. Positive bowel sounds. EXTREMITIES: Without any cyanosis. Right below-knee amputation hyperpigmented discoloration over the left lower extremity NEUROLOGIC: Normal speech, normal tone cranial nerves II to XII intact no motor or sensory deficit PSYCHIATRIC: Normal affect, normal mood. SKIN: No ulcerations General: Alert, No acute distress Heart: Regular rate (SR), Normal S1, Normal S2 Abdomen: Soft, Other (cachectic) Extremities: Other (RAKA, LLE brownish hyperpigmentation) Skin: Other (sacral wound) Assessment and Plan Assessmemt and Plan Problems Medical Problems: (1) Chest pain Status: Acute (2) Person under investigation for COVID-19 Status: Acute Comment Review of Relevant I have reviewed the following items sadie (where applicable) has been applied. Labs Laboratory Tests Test 03/28/20 02:17 03/28/20 02:20 03/28/20 02:45 03/28/20 06:40 Coronavirus (COVID-19)(PCR) Not detected (NOT DETECT.) White Blood Count 8.0 x10^3/uL (4.0-11.0) Red Blood Count 3.77 x10^6/uL (4.30-5.70) Hemoglobin 11.5 g/dL (13.0-17.5) Hematocrit 34.8 % (39.0-53.0) Mean Corpuscular Volume 92 fL (79-100) Mean Corpuscular Hemoglobin 31 pg (25-35) Mean Corpuscular Hemoglobin Concent 33 g/dL (31-37) Red Cell Distribution Width 15.9 % (11.5-14.5) Platelet Count 301 x10^3/uL (140-400) Neutrophils (%) (Auto) 79 % (31-73) Lymphocytes (%) (Auto) 14 % (24-48) Monocytes (%) (Auto) 5 % (0-9) Eosinophils (%) (Auto) 2 % (0-3) Basophils (%) (Auto) 1 % (0-3) Neutrophils # (Auto) 6.3 x10^3/uL (1.8-7.7) Lymphocytes # (Auto) 1.1 x10^3/uL (1.0-4.8) Monocytes # (Auto) 0.4 x10^3/uL (0.0-1.1) Eosinophils # (Auto) 0.2 x10^3/uL (0.0-0.7) Basophils # (Auto) 0.1 x10^3/uL (0.0-0.2) Sodium Level 142 mmol/L (136-145) Potassium Level 4.2 mmol/L (3.5-5.1) Chloride Level 102 mmol/L (98-107) Carbon Dioxide Level 32 mmol/L (21-32) Anion Gap 8 (6-14) Blood Urea Nitrogen 22 mg/dL (8-26) Creatinine 1.0 mg/dL (0.7-1.3) Estimated GFR (Cockcroft-Gault) 73.5 BUN/Creatinine Ratio 22 (6-20) Glucose Level 155 mg/dL (70-99) Calcium Level 9.3 mg/dL (8.5-10.1) Magnesium Level 1.6 mg/dL (1.8-2.4) Total Bilirubin 0.2 mg/dL (0.2-1.0) Aspartate Amino Transf (AST/SGOT) 32 U/L (15-37) Alanine Aminotransferase (ALT/SGPT) 68 U/L (16-63) Alkaline Phosphatase 176 U/L (46-116) Troponin I Quantitative < 0.017 ng/mL (0.000-0.055) < 0.017 ng/mL (0.000-0.055) CE-Uec-N-Type Natriuretic Peptide 93 pg/mL (0-124) Total Protein 7.3 g/dL (6.4-8.2) Albumin 3.2 g/dL (3.4-5.0) Albumin/Globulin Ratio 0.8 (1.0-1.7) Triglycerides Level 107 mg/dL (0-150) Cholesterol Level 260 mg/dL (0-200) LDL Cholesterol, Calculated 185 mg/dL (0-100) VLDL Cholesterol, Calculated 21 mg/dL (0-40) Non-HDL Cholesterol Calculated 206 mg/dL (0-129) HDL Cholesterol 54 mg/dL (40-60) Cholesterol/HDL Ratio 4.8 Lipase 41 U/L (73-393) Urine Collection Type Unknown Urine Color Yellow Urine Clarity Clear Urine pH 5.5 (<5.0-8.0) Urine Specific [place] 1.020 (1.000-1.030) Urine Protein Negative mg/dL (NEG-TRACE) Urine Glucose (UA) Negative mg/dL (NEG) Urine Ketones (Stick) Trace mg/dL (NEG) Urine Blood Negative (NEG) Urine Nitrite Negative (NEG) Urine Bilirubin Negative (NEG) Urine Urobilinogen Dipstick 0.2 mg/dL (0.2 mg/dL) Urine Leukocyte Esterase Negative (NEG) Urine RBC 0 /HPF (0-2) Urine WBC Occ /HPF (0-4) Urine Squamous Epithelial Cells Occ /LPF Urine Amorphous Sediment Present /HPF Urine Bacteria 0 /HPF (0-FEW) Urine Mucus Slight /LPF Test 03/28/20 09:40 Troponin I Quantitative < 0.017 ng/mL (0.000-0.055) Medications Current Medications Aspirin (Aspirin Chewable) 324 mg 1X ONCE PO Last administered on 03/28/20at 02:25; Start 03/28/20 at 02:00; Stop 03/28/20 at 02:01; Status DC Morphine Sulfate (Morphine Sulfate) 2 mg PRN Q15MIN PRN IV/SQ PAIN GREATER THAN 3/10 Last administered on 03/28/20at 05:56; Start 03/28/20 at 01:30; Stop 03/29/20 at 01:29; Status DC Ondansetron HCl (Zofran) 4 mg 1X ONCE IVP Last administered on 03/28/20at 02:24; Start 03/28/20 at 02:00; Stop 03/28/20 at 02:01; Status DC Ondansetron HCl (Zofran) 4 mg PRN Q8HRS PRN IV NAUSEA/VOMITING; Start 03/28/20 at 03:45; Stop 03/29/20 at 03:44; Status DC Nitroglycerin (Nitrostat) 0.4 mg PRN Q5MIN PRN SL CHEST PAIN; Start 03/28/20 at 03:45; Stop 03/29/20 at 03:44; Status DC Acetaminophen (Tylenol) 650 mg PRN Q4HRS PRN PO pain or fever; Start 03/28/20 at 09:15 Amlodipine Besylate (Norvasc) 5 mg DAILY PO ; Start 03/29/20 at 09:00 Aspirin (Ecotrin) 81 mg DAILY PO Last administered on 03/29/20at 08:13; Start 03/29/20 at 09:00 Carvedilol (Coreg) 3.125 mg BIDWMEALS PO Last administered on 03/28/20at 16:09; Start 03/28/20 at 17:00 Clonazepam (KlonoPIN) 0.5 mg BID PO Last administered on 03/29/20 08:13; Start 03/28/20 at 10:00 Clopidogrel Bisulfate (Plavix) 75 mg DAILY PO Last administered on 03/29/20 08:13; Start 03/29/20 at 09:00 Hydromorphone HCl (Dilaudid) 2 mg TID PO Last administered on 03/29/20 08:13; Start 03/28/20 at 10:00 Trazodone HCl (Desyrel) 200 mg QHS PO Last administered on 03/28/20 19:50; Start 03/28/20 at 21:00 Citalopram Hydrobromide (CeleXA) 10 mg DAILY PO Last administered on 03/29/20 08:13; Start 03/29/20 at 09:00 Gabapentin (Neurontin) 400 mg TID PO Last administered on 03/29/20 08:13; Start 03/28/20 at 14:00 Enoxaparin Sodium (Lovenox 40mg Syringe) 40 mg Q24H SQ Last administered on 03/28/20at 16:08; Start 03/28/20 at 16:00 Atorvastatin Calcium (Lipitor) 10 mg QHS PO Last administered on 03/28/20 19:50; Start 03/28/20 at 21:00; Stop 03/29/20 at 07:18; Status DC Atorvastatin Calcium (Lipitor) 40 mg QHS PO ; Start 03/29/20 at 21:00 Active Scripts Active Atorvastatin Calcium 10 Mg Tablet 40 Mg PO QHS 30 Days Reported Clonazepam (Clonazepam) 0.5 Mg Tablet 0.5 Mg PO BID Carvedilol (Carvedilol) 3.125 Mg Tablet 3.125 Mg PO BIDWMEALS Aspirin Ec (Aspirin) 81 Mg Tablet.dr 1 Tab PO DAILY Amlodipine Besylate 5 Mg Tablet 5 Mg PO DAILY Trazodone Hcl 100 Mg Tablet 2 Tab PO QHS Hydromorphone Hcl 4 Mg Tablet 2 Mg PO TID Gabapentin 800 Mg Tablet 400 Mg PO TID Acetaminophen 325 Mg Tablet 2 Tab PO PRN Q4HRS PRN 30 Days Lexapro (Escitalopram Oxalate) 5 Mg Tablet 1 Tab PO DAILY Clopidogrel (Clopidogrel Bisulfate) 75 Mg Tablet 75 Mg PO DAILY Vitals/I & O Vital Sign - Last 24 Hours 03/28/20 03/28/20 03/28/20 03/28/20 16:09 19:00 20:00 23:00 Temp 97.8 97.6 97.8 97.6 Pulse 77 68 70 Resp 16 16 B/P (MAP) 117/67 114/65 (81) 125/52 (76) Pulse Ox 98 92 O2 Delivery Nasal Cannula Nasal Cannula Nasal Cannula O2 Flow Rate 2.0 2.0 3.0 03/29/20 03/29/20 03/29/20 03/29/20 03:00 07:00 08:00 11:00 Temp 97.5 97.6 97.7 97.5 97.6 97.7 Pulse 82 77 70 Resp 20 16 17 B/P (MAP) 105/52 (69) 99/61 (74) 127/62 (83) Pulse Ox 98 96 98 O2 Delivery Nasal Cannula Nasal Cannula Nasal Cannula Nasal Cannula O2 Flow Rate 3.0 2.0 2.0 2.0 03/29/20 14:50 Temp 97.5 97.5 Pulse 80 Resp 16 B/P (MAP) 92/50 (64) Pulse Ox 100 O2 Delivery Nasal Cannula Intake and Output 03/28/20 03/28/20 03/29/20 15:00 23:00 07:00 Intake Total 240 ml 120 ml Output Total 0 ml 0 ml Balance 240 ml 120 ml 0 ml MEME LAGOS MD Mar 29, 2020 15:36
[2020-03-29] MEDS: ENOXAPARIN 40 MG/0.4 ML SYRINGE. SQ SCH (16:00)
[2020-03-29 19:00] VITALS: BP 109/57
[2020-03-29] MEDS: ATORVASTATIN CALCIUM 10 MG TABLET. PO SCH (21:21)
[2020-03-29] MEDS: traZODone 100 MG TABLET. PO SCH (21:22)
[2020-03-29 23:00] VITALS: BP 113/63
[2020-03-30 03:00] VITALS: BP 93/54
--- NOTE | 2020-03-30 06:30 | NUR ---
Patient was bladder scanned this morning and it showed 337cc of urine in bladder. RN will continue to monitor patient closely.
[2020-03-30 07:00] VITALS: BP 99/59
[2020-03-30] MEDS: CARVEDILOL 3.125 MG TABLET. PO SCH ×2 (08:00→17:00)
[2020-03-30] MEDS ORDERED: HYDROmorphone 2 MG TABLET PO SCH (09:00)
[2020-03-30] MEDS: amLODIPine BESYLATE 5 MG TABLET PO SCH (09:00)
[2020-03-30] MEDS: GABAPENTIN 400 MG CAPSULE. PO SCH ×3 (09:17→20:22)
[2020-03-30] MEDS: MULTIVITAMIN with MINERAL TABLET. PO SCH (09:18)
[2020-03-30] MEDS: clonazePAM 0.5 MG TABLET PO SCH ×2 (09:18→20:22)
[2020-03-30] MEDS: ASPIRIN ENTERIC COATED 81 MG TABLET.DR. PO SCH (09:18)
[2020-03-30] MEDS: ASCORBIC ACID 500 MG TABLET PO SCH (09:18)
[2020-03-30] MEDS: CLOPIDOGREL BISULFATE 75 MG TABLET PO SCH (09:18)
[2020-03-30] MEDS: CITALOPRAM 10 MG TABLET. PO SCH (09:19)
[2020-03-30 11:00] VITALS: BP 92/61
--- NOTE | 2020-03-30 11:35 | PDOC ---
PROGRESS NOTES Chief Complaint Chief Complaint impression Chest pain ACS ruled out COVID-19 negative History of CAD currently asymptomatic Chronic pain syndrome Dilaudid pump in his abdominal cavity Normocytic anemia Hyperglycemia Hypomagnesemia 03/30 oversedated with iv pain meds meds adjusted Plan Follow recommendations per training consultant Reviewed medical records from [facility] regarding his last admission Further recommendations based on clinical course Patient was declined to go back to his institution case management helping with discharge planning Resume home medication Supportive measures DVT prophylaxis with Lovenox Cardiology recommendations are greatly appreciated and are as follows: 39 min pt exam, chart review, > 50% of time spent with exam, chart review, pt care coordination Recommendations 1. Continue secondary prevention. ASA/plavix. 40 mg lipitor 2. Presently no cardiac symptoms and seems to be seeking opioid, continue to treat medically. Pt not cooperative only talks when wanting pain meds 3. 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 He had PCI to mid to distal desceding LAD with overlapping CORNELIUS. A referral was also mad to Dr. Mohit Rob opinion on complex PCI of RCA and OMB. No further reports of intervention so assumed that this has been treated medically. EF at that time estimated at 55%. d/w RN Presently no cardiac symptoms and seems to be seeking opioid, continue to treat medically. Pt not cooperative only talks when wanting pain meds History of Present Illness History of Present Illness No acute events reported overnight, case discussed with nursing staff patient in no acute distress no complaints during my visit Vitals Vitals Vital Signs Date Time Temp Pulse Resp B/P (MAP) Pulse Ox O2 Delivery O2 Flow Rate FiO2 03/30/20 11:00 98.0 75 16 92/61 (71) 100 Nasal Cannula 2.0 98.0 Physical Exam Physical Exam GEN.: No apparent distress. Alert and oriented in person. Thin looking HEENT: Head is normocephalic, atraumatic NECK: Supple. LUNGS: Clear to auscultation. HEART: RRR, S1, S2 present. Peripheral pulses intact ABDOMEN: Soft, nontender. Positive bowel sounds. EXTREMITIES: Without any cyanosis. Right below-knee amputation hyperpigmented discoloration over the left lower extremity NEUROLOGIC: Normal speech, normal tone cranial nerves II to XII intact no motor or sensory deficit PSYCHIATRIC: Normal affect, normal mood. SKIN: No ulcerations General: Alert, Cooperative, No acute distress Heart: Regular rate (SR), Normal S1, Normal S2 Abdomen: Normal bowel sounds, Soft, Other (cachectic) Extremities: No cyanosis, Other (RAKA, LLE brownish hyperpigmentation) Skin: Other (sacral wound) Labs LABS EXAM: AP View of the chest DATE: 03/28/2020 1:25 AM INDICATION: Shortness of breath COMPARISON: No Prior FINDINGS: The heart is not enlarged. Mediastinal and hilar contours are stable. Nodular opacity retrocardiac left lung base. No pleural effusion or pneumothorax. Nondisplaced right posterolateral seventh rib fractures seen, likely chronic. IMPRESSION: 1. Nodular opacity retrocardiac left lung base. Recommend short interval follow-up radiographs to assess for resolution or further evaluation with nonemergent CT to exclude underlying mass. Electronically signed by: Gary Harris MD (03/28/2020 2:20 AM) [facility] DICTATED and SIGNED BY: GARY HARRIS MD DATE: 03/28/20 022 Assessment and Plan Assessmemt and Plan Problems Medical Problems: (1) Chest pain Status: Acute (2) Person under investigation for COVID-19 Status: Acute Comment Review of Relevant I have reviewed the following items sadie (where applicable) has been applied. Medications Current Medications Aspirin (Aspirin Chewable) 324 mg 1X ONCE PO Last administered on 03/28/20at 02:25; Start 03/28/20 at 02:00; Stop 03/28/20 at 02:01; Status DC Morphine Sulfate (Morphine Sulfate) 2 mg PRN Q15MIN PRN IV/SQ PAIN GREATER THAN 3/10 Last administered on 03/28/20at 05:56; Start 03/28/20 at 01:30; Stop 03/29/20 at 01:29; Status DC Ondansetron HCl (Zofran) 4 mg 1X ONCE IVP Last administered on 03/28/20at 02:24; Start 03/28/20 at 02:00; Stop 03/28/20 at 02:01; Status DC Ondansetron HCl (Zofran) 4 mg PRN Q8HRS PRN IV NAUSEA/VOMITING; Start 03/28/20 at 03:45; Stop 03/29/20 at 03:44; Status DC Nitroglycerin (Nitrostat) 0.4 mg PRN Q5MIN PRN SL CHEST PAIN; Start 03/28/20 at 03:45; Stop 03/29/20 at 03:44; Status DC Acetaminophen (Tylenol) 650 mg PRN Q4HRS PRN PO pain or fever Last administered on 03/30/20 06:23; Start 03/28/20 at 09:15 Amlodipine Besylate (Norvasc) 5 mg DAILY PO ; Start 03/29/20 at 09:00 Aspirin (Ecotrin) 81 mg DAILY PO Last administered on 03/30/20at 09:18; Start 03/29/20 at 09:00 Carvedilol (Coreg) 3.125 mg BIDWMEALS PO Last administered on 03/28/20at 16:09; Start 03/28/20 at 17:00 Clonazepam (KlonoPIN) 0.5 mg BID PO Last administered on 03/30/20 09:18; Start 03/28/20 at 10:00 Clopidogrel Bisulfate (Plavix) 75 mg DAILY PO Last administered on 03/30/20 09:18; Start 03/29/20 at 09:00 Hydromorphone HCl (Dilaudid) 2 mg TID PO Last administered on 03/29/20 21:22; Start 03/28/20 at 10:00; Stop 03/30/20 at 08:33; Status DC Trazodone HCl (Desyrel) 200 mg QHS PO Last administered on 03/29/20 21:22; Start 03/28/20 at 21:00 Citalopram Hydrobromide (CeleXA) 10 mg DAILY PO Last administered on 03/30/20 09:19; Start 03/29/20 at 09:00 Gabapentin (Neurontin) 400 mg TID PO Last administered on 03/30/20 09:17; Start 03/28/20 at 14:00 Enoxaparin Sodium (Lovenox 40mg Syringe) 40 mg Q24H SQ Last administered on 03/28/20 16:08; Start 03/28/20 at 16:00 Atorvastatin Calcium (Lipitor) 10 mg QHS PO Last administered on 03/28/20 19:50; Start 03/28/20 at 21:00; Stop 03/29/20 at 07:18; Status DC Atorvastatin Calcium (Lipitor) 40 mg QHS PO Last administered on 03/29/20 21 :21; Start 03/29/20 at 21:00 Multivitamins (Thera M Plus) 1 tab DAILY PO Last administered on 03/30/20 09:18; Start 03/30/20 at 09:00 Ascorbic Acid (Vitamin C) 500 mg DAILY PO Last administered on 03/30/20 09:18; Start 03/30/20 at 09:00 Hydromorphone HCl (Dilaudid) 2 mg TID PO Last administered on 03/30/20 09:18; Start 03/30/20 at 09:00 Active Scripts Active Atorvastatin Calcium 10 Mg Tablet 40 Mg PO QHS 30 Days Reported Clonazepam (Clonazepam) 0.5 Mg Tablet 0.5 Mg PO BID Carvedilol (Carvedilol) 3.125 Mg Tablet 3.125 Mg PO BIDWMEALS Aspirin Ec (Aspirin) 81 Mg Tablet.dr 1 Tab PO DAILY Amlodipine Besylate 5 Mg Tablet 5 Mg PO DAILY Trazodone Hcl 100 Mg Tablet 2 Tab PO QHS Hydromorphone Hcl 4 Mg Tablet 2 Mg PO TID Gabapentin 800 Mg Tablet 400 Mg PO TID Acetaminophen 325 Mg Tablet 2 Tab PO PRN Q4HRS PRN 30 Days Lexapro (Escitalopram Oxalate) 5 Mg Tablet 1 Tab PO DAILY Clopidogrel (Clopidogrel Bisulfate) 75 Mg Tablet 75 Mg PO DAILY Vitals/I & O Vital Sign - Last 24 Hours 03/29/20 03/29/20 03/29/20 03/29/20 14:50 19:00 19:40 23:00 Temp 97.5 97.4 98.2 97.5 97.4 98.2 Pulse 80 81 76 Resp 16 18 18 B/P (MAP) 92/50 (64) 109/57 (74) 113/63 (80) Pulse Ox 100 92 98 O2 Delivery Nasal Cannula Nasal Cannula O2 Flow Rate 2.0 03/30/20 03/30/20 03/30/20 03/30/20 03:00 07:00 08:00 09:00 Temp 98.2 97.5 98.2 97.5 Pulse 87 68 68 68 Resp 16 16 B/P (MAP) 93/54 (67) 99/59 (72) 99/59 99/59 Pulse Ox 96 95 O2 Delivery Nasal Cannula O2 Flow Rate 2.0 03/30/20 03/30/20 03/30/20 09:18 10:18 11:00 Temp 98.0 98.0 Pulse 75 Resp 16 B/P (MAP) 92/61 (71) Pulse Ox 95 100 O2 Delivery Nasal Cannula Nasal Cannula Nasal Cannula O2 Flow Rate 2.0 2.0 2.0 Intake and Output 03/29/20 03/29/20 03/30/20 15:00 23:00 07:00 Intake Total 175 ml 75 ml 0 ml Output Total 0 ml Balance 175 ml 75 ml 0 ml NISSA HINES MD Mar 30, 2020 11:35
--- NOTE | 2020-03-30 11:40 | NUR ---
Two attempts were made for assessment of coccyx. patient refused both times. Addendum: 03/30/20 at 1343 by LENORA BRUNER RN RN Amended: Links added.
[2020-03-30 12:14] LABS: BASO % 1 % (0-3); EOS # 0.1 x10^3/uL (0.0-0.7); EOS % 1 % (0-3); HEMATOCRIT 30.7 % (39.0-53.0); HEMOGLOBIN 10.4 g/dL (13.0-17.5); LYMPH # 1.4 x10^3/uL (1.0-4.8); LYMPH % 21 % (24-48); MEAN CORPUSCULAR HEMOGLOBIN 31 pg (25-35); MEAN CORPUSCULAR HGB CONC 34 g/dL (31-37); MEAN CORPUSCULAR VOLUME 92 fL (79-100); MONO # 0.5 x10^3/uL (0.0-1.1); MONO % 8 % (0-9); NEUT # 4.8 x10^3/uL (1.8-7.7); NEUT % 69 % (31-73); PLATELET COUNT 248 x10^3/uL (140-400); RED BLOOD COUNT 3.34 x10^6/uL (4.30-5.70); RED CELL DISTRIBUTION WIDTH 15.2 % (11.5-14.5); WHITE BLOOD COUNT 6.9 x10^3/uL (4.0-11.0)
[2020-03-30 12:40] LABS: ALBUMIN 2.9 g/dL (3.4-5.0); ALBUMIN/GLOBULIN RATIO 0.8 (1.0-1.7); CREATININE 0.9 mg/dL (0.7-1.3); GFR 82.5; POTASSIUM 4.1 mmol/L (3.5-5.1); TOTAL BILIRUBIN 0.3 mg/dL (0.2-1.0); TOTAL PROTEIN 6.7 g/dL (6.4-8.2)
[2020-03-30] MEDS ORDERED: NALOXONE 0.4 MG/ML VIAL. IV ONE (12:45)
--- NOTE | 2020-03-30 13:33 | NUR ---
Narcan administered at 1245. Patient more alert, opens eyes when name is called. Will continue to monitor.
--- NOTE | 2020-03-30 14:07 | PDOC ---
PROGRESS NOTES Subjective Subjective Patient seen and evaluated Objective Objective Vital Signs Date Time Temp Pulse Resp B/P (MAP) Pulse Ox O2 Delivery O2 Flow Rate FiO2 03/30/20 11:00 98.0 75 16 92/61 (71) 100 Nasal Cannula 2.0 98.0 Intake and Output0 03/30/20 07:00 Intake Total 250 ml Output Total 0 ml Balance 250 ml Intake Oral 250 ml Output Urine Total 0 ml # Voids 1 Physical Exam Abdomen: Normal bowel sounds Heart: Regular rate General: No acute distress, Other Lungs: Other (Mildly decreased breath sounds) Assessment Assessment Problems Medical Problems: (1) Chest pain Status: Acute (2) Person under investigation for COVID-19 Status: Acute Atypical chest pain: History of coronary disease and stenting as above. Patient minimally responsive to questioning. We will continue present cardiac medications. Chronic pain. Discussion as above. Controlled hypertension. Diabetes mellitus as per the primary service. Hyperlipidemia. Continue present treatments and will adjust as possible. Comment Review of Relevant I have reviewed the following items sadie (where applicable) has been applied. Labs Laboratory Tests Test 03/30/20 12:06 White Blood Count 6.9 x10^3/uL (4.0-11.0) Red Blood Count 3.34 x10^6/uL (4.30-5.70) Hemoglobin 10.4 g/dL (13.0-17.5) Hematocrit 30.7 % (39.0-53.0) Mean Corpuscular Volume 92 fL (79-100) Mean Corpuscular Hemoglobin 31 pg (25-35) Mean Corpuscular Hemoglobin Concent 34 g/dL (31-37) Red Cell Distribution Width 15.2 % (11.5-14.5) Platelet Count 248 x10^3/uL (140-400) Neutrophils (%) (Auto) 69 % (31-73) Lymphocytes (%) (Auto) 21 % (24-48) Monocytes (%) (Auto) 8 % (0-9) Eosinophils (%) (Auto) 1 % (0-3) Basophils (%) (Auto) 1 % (0-3) Neutrophils # (Auto) 4.8 x10^3/uL (1.8-7.7) Lymphocytes # (Auto) 1.4 x10^3/uL (1.0-4.8) Monocytes # (Auto) 0.5 x10^3/uL (0.0-1.1) Eosinophils # (Auto) 0.1 x10^3/uL (0.0-0.7) Basophils # (Auto) 0.0 x10^3/uL (0.0-0.2) Sodium Level 141 mmol/L (136-145) Potassium Level 4.1 mmol/L (3.5-5.1) Chloride Level 102 mmol/L (98-107) Carbon Dioxide Level 31 mmol/L (21-32) Anion Gap 8 (6-14) Blood Urea Nitrogen 26 mg/dL (8-26) Creatinine 0.9 mg/dL (0.7-1.3) Estimated GFR (Cockcroft-Gault) 82.5 BUN/Creatinine Ratio 29 (6-20) Glucose Level 99 mg/dL (70-99) Calcium Level 9.0 mg/dL (8.5-10.1) Total Bilirubin 0.3 mg/dL (0.2-1.0) Aspartate Amino Transf (AST/SGOT) 20 U/L (15-37) Alanine Aminotransferase (ALT/SGPT) 37 U/L (16-63) Alkaline Phosphatase 132 U/L (46-116) Total Protein 6.7 g/dL (6.4-8.2) Albumin 2.9 g/dL (3.4-5.0) Albumin/Globulin Ratio 0.8 (1.0-1.7) Laboratory Tests Test 03/30/20 12:06 White Blood Count 6.9 x10^3/uL (4.0-11.0) Red Blood Count 3.34 x10^6/uL (4.30-5.70) Hemoglobin 10.4 g/dL (13.0-17.5) Hematocrit 30.7 % (39.0-53.0) Mean Corpuscular Volume 92 fL (79-100) Mean Corpuscular Hemoglobin 31 pg (25-35) Mean Corpuscular Hemoglobin Concent 34 g/dL (31-37) Red Cell Distribution Width 15.2 % (11.5-14.5) Platelet Count 248 x10^3/uL (140-400) Neutrophils (%) (Auto) 69 % (31-73) Lymphocytes (%) (Auto) 21 % (24-48) Monocytes (%) (Auto) 8 % (0-9) Eosinophils (%) (Auto) 1 % (0-3) Basophils (%) (Auto) 1 % (0-3) Neutrophils # (Auto) 4.8 x10^3/uL (1.8-7.7) Lymphocytes # (Auto) 1.4 x10^3/uL (1.0-4.8) Monocytes # (Auto) 0.5 x10^3/uL (0.0-1.1) Eosinophils # (Auto) 0.1 x10^3/uL (0.0-0.7) Basophils # (Auto) 0.0 x10^3/uL (0.0-0.2) Sodium Level 141 mmol/L (136-145) Potassium Level 4.1 mmol/L (3.5-5.1) Chloride Level 102 mmol/L (98-107) Carbon Dioxide Level 31 mmol/L (21-32) Anion Gap 8 (6-14) Blood Urea Nitrogen 26 mg/dL (8-26) Creatinine 0.9 mg/dL (0.7-1.3) Estimated GFR (Cockcroft-Gault) 82.5 BUN/Creatinine Ratio 29 (6-20) Glucose Level 99 mg/dL (70-99) Calcium Level 9.0 mg/dL (8.5-10.1) Total Bilirubin 0.3 mg/dL (0.2-1.0) Aspartate Amino Transf (AST/SGOT) 20 U/L (15-37) Alanine Aminotransferase (ALT/SGPT) 37 U/L (16-63) Alkaline Phosphatase 132 U/L (46-116) Total Protein 6.7 g/dL (6.4-8.2) Albumin 2.9 g/dL (3.4-5.0) Albumin/Globulin Ratio 0.8 (1.0-1.7) Medications Current Medications Aspirin (Aspirin Chewable) 324 mg 1X ONCE PO Last administered on 03/28/20at 02:25; Start 03/28/20 at 02:00; Stop 03/28/20 at 02:01; Status DC Morphine Sulfate (Morphine Sulfate) 2 mg PRN Q15MIN PRN IV/SQ PAIN GREATER THAN 3/10 Last administered on 03/28/20at 05:56; Start 03/28/20 at 01:30; Stop 03/29/20 at 01:29; Status DC Ondansetron HCl (Zofran) 4 mg 1X ONCE IVP Last administered on 03/28/20at 02:24; Start 03/28/20 at 02:00; Stop 03/28/20 at 02:01; Status DC Ondansetron HCl (Zofran) 4 mg PRN Q8HRS PRN IV NAUSEA/VOMITING; Start 03/28/20 at 03:45; Stop 03/29/20 at 03:44; Status DC Nitroglycerin (Nitrostat) 0.4 mg PRN Q5MIN PRN SL CHEST PAIN; Start 03/28/20 at 03:45; Stop 03/29/20 at 03:44; Status DC Acetaminophen (Tylenol) 650 mg PRN Q4HRS PRN PO pain or fever Last administered on 03/30/20 06:23; Start 03/28/20 at 09:15 Amlodipine Besylate (Norvasc) 5 mg DAILY PO ; Start 03/29/20 at 09:00 Aspirin (Ecotrin) 81 mg DAILY PO Last administered on 03/30/20 09:18; Start 03/29/20 at 09:00 Carvedilol (Coreg) 3.125 mg BIDWMEALS PO Last administered on 03/28/20 16:09; Start 03/28/20 at 17:00 Clonazepam (KlonoPIN) 0.5 mg BID PO Last administered on 03/30/20 09:18; Start 03/28/20 at 10:00 Clopidogrel Bisulfate (Plavix) 75 mg DAILY PO Last administered on 03/30/20 09:18; Start 03/29/20 at 09:00 Hydromorphone HCl (Dilaudid) 2 mg TID PO Last administered on 03/29/20 21:22; Start 03/28/20 at 10:00; Stop 03/30/20 at 08:33; Status DC Trazodone HCl (Desyrel) 200 mg QHS PO Last administered on 03/29/20 21:22; Start 03/28/20 at 21:00 Citalopram Hydrobromide (CeleXA) 10 mg DAILY PO Last administered on 03/30/20 09:19; Start 03/29/20 at 09:00 Gabapentin (Neurontin) 400 mg TID PO Last administered on 03/30/20 09:17; Start 03/28/20 at 14:00 Enoxaparin Sodium (Lovenox 40mg Syringe) 40 mg Q24H SQ Last administered on 03/28/20at 16:08; Start 03/28/20 at 16:00 Atorvastatin Calcium (Lipitor) 10 mg QHS PO Last administered on 03/28/20at 19:50; Start 03/28/20 at 21:00; Stop 03/29/20 at 07:18; Status DC Atorvastatin Calcium (Lipitor) 40 mg QHS PO Last administered on 03/29/20at 21:21; Start 03/29/20 at 21:00 Multivitamins (Thera M Plus) 1 tab DAILY PO Last administered on 03/30/20at 09:18 ; Start 03/30/20 at 09:00 Ascorbic Acid (Vitamin C) 500 mg DAILY PO Last administered on 03/30/20at 09:18; Start 03/30/20 at 09:00 Hydromorphone HCl (Dilaudid) 2 mg TID PO Last administered on 03/30/20at 09:18; Start 03/30/20 at 09:00; Stop 03/30/20 at 13:48; Status DC Naloxone HCl (Narcan) 0.4 mg 1X ONCE IV Last administered on 03/30/20at 12:45; Start 03/30/20 at 12:45; Stop 03/30/20 at 12:49; Status DC Hydromorphone HCl (Dilaudid) 1 mg PRN TID PRN PO SEVERE PAIN 7-10; Start 03/30/20 at 14:00 Active Scripts Active Atorvastatin Calcium 10 Mg Tablet 40 Mg PO QHS 30 Days Reported Clonazepam (Clonazepam) 0.5 Mg Tablet 0.5 Mg PO BID Carvedilol (Carvedilol) 3.125 Mg Tablet 3.125 Mg PO BIDWMEALS Aspirin Ec (Aspirin) 81 Mg Tablet.dr 1 Tab PO DAILY Amlodipine Besylate 5 Mg Tablet 5 Mg PO DAILY Trazodone Hcl 100 Mg Tablet 2 Tab PO QHS Hydromorphone Hcl 4 Mg Tablet 2 Mg PO TID Gabapentin 800 Mg Tablet 400 Mg PO TID Acetaminophen 325 Mg Tablet 2 Tab PO PRN Q4HRS PRN 30 Days Lexapro (Escitalopram Oxalate) 5 Mg Tablet 1 Tab PO DAILY Clopidogrel (Clopidogrel Bisulfate) 75 Mg Tablet 75 Mg PO DAILY Vitals/I & O Vital Sign - Last 24 Hours 03/29/20 03/29/20 03/29/20 03/29/20 14:50 19:00 19:40 23:00 Temp 97.5 97.4 98.2 97.5 97.4 98.2 Pulse 80 81 76 Resp 16 18 18 B/P (MAP) 92/50 (64) 109/57 (74) 113/63 (80) Pulse Ox 100 92 98 O2 Delivery Nasal Cannula Nasal Cannula O2 Flow Rate 2.0 03/30/20 03/30/20 03/30/20 03/30/20 03:00 07:00 08:00 08:00 Temp 98.2 97.5 98.2 97.5 Pulse 87 68 68 Resp 16 16 B/P (MAP) 93/54 (67) 99/59 (72) 99/59 Pulse Ox 96 95 O2 Delivery Nasal Cannula Nasal Cannula O2 Flow Rate 2.0 2.0 03/30/20 03/30/20 03/30/20 03/30/20 09:00 09:18 10:18 11:00 Temp 98.0 98.0 Pulse 68 75 Resp 16 B/P (MAP) 99/59 92/61 (71) Pulse Ox 95 100 O2 Delivery Nasal Cannula Nasal Cannula Nasal Cannula O2 Flow Rate 2.0 2.0 2.0 Intake and Output 03/29/20 03/29/20 03/30/20 15:00 23:00 07:00 Intake Total 175 ml 75 ml 0 ml Output Total 0 ml Balance 175 ml 75 ml 0 ml MALLIKA AVALOS MD Mar 30, 2020 14:07
[2020-03-30 15:00] VITALS: BP 107/70
[2020-03-30] MEDS: ENOXAPARIN 40 MG/0.4 ML SYRINGE. SQ SCH (16:00)
[2020-03-30 19:00] VITALS: BP 115/57
[2020-03-30] MEDS: ATORVASTATIN CALCIUM 10 MG TABLET. PO SCH (20:22)
[2020-03-30] MEDS: traZODone 100 MG TABLET. PO SCH (20:22)
[2020-03-30 23:00] VITALS: BP 101/50
[2020-03-31] VITALS (7 sets, daily range): BP systolic 91–118; BP diastolic 35–56
[2020-03-31] MEDS: CARVEDILOL 3.125 MG TABLET. PO SCH ×2 (08:00→17:00)
[2020-03-31] MEDS: amLODIPine BESYLATE 5 MG TABLET PO SCH (09:00)
[2020-03-31] MEDS: ASCORBIC ACID 500 MG TABLET PO SCH (09:04)
[2020-03-31] MEDS: CITALOPRAM 10 MG TABLET. PO SCH (09:04)
[2020-03-31] MEDS: AMINO AC 3%/ELECTROLYTE/GLYCER 1,000 ML IV SCH ×2 (09:04→21:01)
[2020-03-31] MEDS: GABAPENTIN 400 MG CAPSULE. PO SCH ×3 (09:05→21:01)
[2020-03-31] MEDS: clonazePAM 0.5 MG TABLET PO SCH ×3 (09:05→21:01)
[2020-03-31] MEDS: ASPIRIN ENTERIC COATED 81 MG TABLET.DR. PO SCH (09:05)
[2020-03-31] MEDS: CLOPIDOGREL BISULFATE 75 MG TABLET PO SCH (09:05)
[2020-03-31] MEDS: MULTIVITAMIN with MINERAL TABLET. PO SCH (09:05)
--- NOTE | 2020-03-31 10:34 | PDOC ---
PROGRESS NOTES Chief Complaint Chief Complaint Impression and plan Chest pain ACS ruled out COVID-19 negative History of CAD currently asymptomatic Chronic pain syndrome Dilaudid pump in his abdominal cavity Normocytic anemia Hyperglycemia Hypomagnesemia Plan Follow recommendations per internal controls consultant Reviewed medical records from [facility] regarding his last admission Further recommendations based on clinical course Patient was declined to go back to his institution case management helping with discharge planning Resume home medication Supportive measures DVT prophylaxis with Lovenox Cardiology recommendations are greatly appreciated and are as follows: Recommendations 1. Continue secondary prevention. ASA/plavix. 40 mg lipitor 2. Presently no cardiac symptoms and seems to be seeking opioid, continue to t reat medically. Pt not cooperative only talks when wanting pain meds 3. Follow up with outpt mobility scooter repairer, may DC nsg home and will psych f/u [facility] records reviewed Pt had PCI on 12/27/2018 noted with critical mid distal LAD lesion, widely patent proximal LAD with mild to moderate restenosis, moderately severe stenosis to proximal OMB 2, total occlusion of proximal mid RCA with left to right collateral filling a large territory distribution of the right posterior descending and lateral branches. He had PCI to mid to distal desceding LAD with overlapping CORNELIUS. A referral was also mad to Dr. Mohit Rob opinion on complex PCI of RCA and OMB. No further reports of intervention so assumed that this has been treated medically. EF at that time estimated at 55%. d/w RN Presently no cardiac symptoms and seems to be seeking opioid, continue to treat medically. Pt not cooperative only talks when wanting pain meds History of Present Illness History of Present Illness 03/30 oversedated with iv pain meds meds adjusted 03/31 No acute events reported overnight, case discussed with nursing staff patient in no acute distress no complaints during my visit continues to be sedated, case management hopefully will help us with disposition Vitals Vitals Vital Signs Date Time Temp Pulse Resp B/P (MAP) Pulse Ox O2 Delivery O2 Flow Rate FiO2 03/31/20 08:00 Nasal Cannula 2.0 03/31/20 07:00 98.1 72 16 107/35 (59) 99 98.1 Physical Exam Physical Exam GEN.: No apparent distress. Alert and oriented in person. Thin looking HEENT: Head is normocephalic, atraumatic NECK: Supple. LUNGS: Clear to auscultation. HEART: RRR, S1, S2 present. Peripheral pulses intact ABDOMEN: Soft, nontender. Positive bowel sounds. EXTREMITIES: Without any cyanosis. Right below-knee amputation hyperpigmented discoloration over the left lower extremity NEUROLOGIC: Normal speech, normal tone cranial nerves II to XII intact no motor or sensory deficit PSYCHIATRIC: Normal affect, normal mood. SKIN: No ulcerations General: No acute distress, Other Heart: Regular rate Abdomen: Normal bowel sounds Extremities: No cyanosis, Other (RAKA, LLE brownish hyperpigmentation) Skin: Other (sacral wound) Labs LABS Laboratory Tests Test 03/30/20 12:06 White Blood Count 6.9 x10^3/uL (4.0-11.0) Red Blood Count 3.34 x10^6/uL (4.30-5.70) Hemoglobin 10.4 g/dL (13.0-17.5) Hematocrit 30.7 % (39.0-53.0) Mean Corpuscular Volume 92 fL (79-100) Mean Corpuscular Hemoglobin 31 pg (25-35) Mean Corpuscular Hemoglobin Concent 34 g/dL (31-37) Red Cell Distribution Width 15.2 % (11.5-14.5) Platelet Count 248 x10^3/uL (140-400) Neutrophils (%) (Auto) 69 % (31-73) Lymphocytes (%) (Auto) 21 % (24-48) Monocytes (%) (Auto) 8 % (0-9) Eosinophils (%) (Auto) 1 % (0-3) Basophils (%) (Auto) 1 % (0-3) Neutrophils # (Auto) 4.8 x10^3/uL (1.8-7.7) Lymphocytes # (Auto) 1.4 x10^3/uL (1.0-4.8) Monocytes # (Auto) 0.5 x10^3/uL (0.0-1.1) Eosinophils # (Auto) 0.1 x10^3/uL (0.0-0.7) Basophils # (Auto) 0.0 x10^3/uL (0.0-0.2) Sodium Level 141 mmol/L (136-145) Potassium Level 4.1 mmol/L (3.5-5.1) Chloride Level 102 mmol/L (98-107) Carbon Dioxide Level 31 mmol/L (21-32) Anion Gap 8 (6-14) Blood Urea Nitrogen 26 mg/dL (8-26) Creatinine 0.9 mg/dL (0.7-1.3) Estimated GFR (Cockcroft-Gault) 82.5 BUN/Creatinine Ratio 29 (6-20) Glucose Level 99 mg/dL (70-99) Calcium Level 9.0 mg/dL (8.5-10.1) Total Bilirubin 0.3 mg/dL (0.2-1.0) Aspartate Amino Transf (AST/SGOT) 20 U/L (15-37) Alanine Aminotransferase (ALT/SGPT) 37 U/L (16-63) Alkaline Phosphatase 132 U/L (46-116) Total Protein 6.7 g/dL (6.4-8.2) Albumin 2.9 g/dL (3.4-5.0) Albumin/Globulin Ratio 0.8 (1.0-1.7) Assessment and Plan Assessmemt and Plan Problems Medical Problems: (1) Chest pain Status: Acute (2) Person under investigation for COVID-19 Status: Acute Comment Review of Relevant I have reviewed the following items sadie (where applicable) has been applied. Labs Laboratory Tests Test 03/30/20 12:06 White Blood Count 6.9 x10^3/uL (4.0-11.0) Red Blood Count 3.34 x10^6/uL (4.30-5.70) Hemoglobin 10.4 g/dL (13.0-17.5) Hematocrit 30.7 % (39.0-53.0) Mean Corpuscular Volume 92 fL (79-100) Mean Corpuscular Hemoglobin 31 pg (25-35) Mean Corpuscular Hemoglobin Concent 34 g/dL (31-37) Red Cell Distribution Width 15.2 % (11.5-14.5) Platelet Count 248 x10^3/uL (140-400) Neutrophils (%) (Auto) 69 % (31-73) Lymphocytes (%) (Auto) 21 % (24-48) Monocytes (%) (Auto) 8 % (0-9) Eosinophils (%) (Auto) 1 % (0-3) Basophils (%) (Auto) 1 % (0-3) Neutrophils # (Auto) 4.8 x10^3/uL (1.8-7.7) Lymphocytes # (Auto) 1.4 x10^3/uL (1.0-4.8) Monocytes # (Auto) 0.5 x10^3/uL (0.0-1.1) Eosinophils # (Auto) 0.1 x10^3/uL (0.0-0.7) Basophils # (Auto) 0.0 x10^3/uL (0.0-0.2) Sodium Level 141 mmol/L (136-145) Potassium Level 4.1 mmol/L (3.5-5.1) Chloride Level 102 mmol/L (98-107) Carbon Dioxide Level 31 mmol/L (21-32) Anion Gap 8 (6-14) Blood Urea Nitrogen 26 mg/dL (8-26) Creatinine 0.9 mg/dL (0.7-1.3) Estimated GFR (Cockcroft-Gault) 82.5 BUN/Creatinine Ratio 29 (6-20) Glucose Level 99 mg/dL (70-99) Calcium Level 9.0 mg/dL (8.5-10.1) Total Bilirubin 0.3 mg/dL (0.2-1.0) Aspartate Amino Transf (AST/SGOT) 20 U/L (15-37) Alanine Aminotransferase (ALT/SGPT) 37 U/L (16-63) Alkaline Phosphatase 132 U/L (46-116) Total Protein 6.7 g/dL (6.4-8.2) Albumin 2.9 g/dL (3.4-5.0) Albumin/Globulin Ratio 0.8 (1.0-1.7) Laboratory Tests Test 03/30/20 12:06 White Blood Count 6.9 x10^3/uL (4.0-11.0) Red Blood Count 3.34 x10^6/uL (4.30-5.70) Hemoglobin 10.4 g/dL (13.0-17.5) Hematocrit 30.7 % (39.0-53.0) Mean Corpuscular Volume 92 fL (79-100) Mean Corpuscular Hemoglobin 31 pg (25-35) Mean Corpuscular Hemoglobin Concent 34 g/dL (31-37) Red Cell Distribution Width 15.2 % (11.5-14.5) Platelet Count 248 x10^3/uL (140-400) Neutrophils (%) (Auto) 69 % (31-73) Lymphocytes (%) (Auto) 21 % (24-48) Monocytes (%) (Auto) 8 % (0-9) Eosinophils (%) (Auto) 1 % (0-3) Basophils (%) (Auto) 1 % (0-3) Neutrophils # (Auto) 4.8 x10^3/uL (1.8-7.7) Lymphocytes # (Auto) 1.4 x10^3/uL (1.0-4.8) Monocytes # (Auto) 0.5 x10^3/uL (0.0-1.1) Eosinophils # (Auto) 0.1 x10^3/uL (0.0-0.7) Basophils # (Auto) 0.0 x10^3/uL (0.0-0.2) Sodium Level 141 mmol/L (136-145) Potassium Level 4.1 mmol/L (3.5-5.1) Chloride Level 102 mmol/L (98-107) Carbon Dioxide Level 31 mmol/L (21-32) Anion Gap 8 (6-14) Blood Urea Nitrogen 26 mg/dL (8-26) Creatinine 0.9 mg/dL (0.7-1.3) Estimated GFR (Cockcroft-Gault) 82.5 BUN/Creatinine Ratio 29 (6-20) Glucose Level 99 mg/dL (70-99) Calcium Level 9.0 mg/dL (8.5-10.1) Total Bilirubin 0.3 mg/dL (0.2-1.0) Aspartate Amino Transf (AST/SGOT) 20 U/L (15-37) Alanine Aminotransferase (ALT/SGPT) 37 U/L (16-63) Alkaline Phosphatase 132 U/L (46-116) Total Protein 6.7 g/dL (6.4-8.2) Albumin 2.9 g/dL (3.4-5.0) Albumin/Globulin Ratio 0.8 (1.0-1.7) Medications Current Medications Aspirin (Aspirin Chewable) 324 mg 1X ONCE PO Last administered on 03/28/20at 02:25; Start 03/28/20 at 02:00; Stop 03/28/20 at 02:01; Status DC Morphine Sulfate (Morphine Sulfate) 2 mg PRN Q15MIN PRN IV/SQ PAIN GREATER THAN 3/10 Last administered on 03/28/20at 05:56; Start 03/28/20 at 01:30; Stop 03/29/20 at 01:29; Status DC Ondansetron HCl (Zofran) 4 mg 1X ONCE IVP Last administered on 03/28/20at 02:24; Start 03/28/20 at 02:00; Stop 03/28/20 at 02:01; Status DC Ondansetron HCl (Zofran) 4 mg PRN Q8HRS PRN IV NAUSEA/VOMITING; Start 03/28/20 at 03:45; Stop 03/29/20 at 03:44; Status DC Nitroglycerin (Nitrostat) 0.4 mg PRN Q5MIN PRN SL CHEST PAIN; Start 03/28/20 at 03:45; Stop 03/29/20 at 03:44; Status DC Acetaminophen (Tylenol) 650 mg PRN Q4HRS PRN PO MILD-MOD PAIN / TEMP > 100.3'F Last administered on 03/30/20at 06:23; Start 03/28/20 at 09:15 Amlodipine Besylate (Norvasc) 5 mg DAILY PO ; Start 03/29/20 at 09:00 Aspirin (Ecotrin) 81 mg DAILY PO Last administered on 03/31/20at 09:05; Start 03/29/20 at 09:00 Carvedilol (Coreg) 3.125 mg BIDWMEALS PO Last administered on 03/28/20at 16:09; Start 03/28/20 at 17:00 Clonazepam (KlonoPIN) 0.5 mg BID PO Last administered on 03/31/20at 09:05; Start 03/28/20 at 10:00 Clopidogrel Bisulfate (Plavix) 75 mg DAILY PO Last administered on 03/31/20at 09:05; Start 03/29/20 at 09:00 Hydromorphone HCl (Dilaudid) 2 mg TID PO Last administered on 03/29/20at 21:22; Start 03/28/20 at 10:00; Stop 03/30/20 at 08:33; Status DC Trazodone HCl (Desyrel) 200 mg QHS PO Last administered on 03/30/20 20:22; Start 03/28/20 at 21:00 Citalopram Hydrobromide (CeleXA) 10 mg DAILY PO Last administered on 03/31/20 09:04; Start 03/29/20 at 09:00 Gabapentin (Neurontin) 400 mg TID PO Last administered on 03/31/20 09:05; Start 03/28/20 at 14:00 Enoxaparin Sodium (Lovenox 40mg Syringe) 40 mg Q24H SQ Last administered on 03/28/20 16:08; Start 03/28/20 at 16:00 Atorvastatin Calcium (Lipitor) 10 mg QHS PO Last administered on 03/28/20 19:50; Start 03/28/20 at 21:00; Stop 03/29/20 at 07:18; Status DC Atorvastatin Calcium (Lipitor) 40 mg QHS PO Last administered on 03/30/20 20:22; Start 03/29/20 at 21:00 Multivitamins (Thera M Plus) 1 tab DAILY PO Last administered on 03/31/20 09:05; Start 03/30/20 at 09:00 Ascorbic Acid (Vitamin C) 500 mg DAILY PO Last administered on 03/31/20 09:04; Start 03/30/20 at 09:00 Hydromorphone HCl (Dilaudid) 2 mg TID PO Last administered on 03/30/20 09:18; Start 03/30/20 at 09:00; Stop 03/30/20 at 13:48; Status DC Naloxone HCl (Narcan) 0.4 mg 1X ONCE IV Last administered on 03/30/20 12:45; Start 03/30/20 at 12:45; Stop 03/30/20 at 12:49; Status DC Hydromorphone HCl (Dilaudid) 1 mg PRN TID PRN PO SEVERE PAIN 7-10; Start 03/30/20 at 14:00 Amino Acids/ Glycerin/ Electrolytes 1,000 ml @ 80 mls/hr [id number] IV Last administered on 03/31/20 09:04; Start 03/31/20 at 07:15 Active Scripts Active Atorvastatin Calcium 10 Mg Tablet 40 Mg PO QHS 30 Days Reported Clonazepam (Clonazepam) 0.5 Mg Tablet 0.5 Mg PO BID Carvedilol (Carvedilol) 3.125 Mg Tablet 3.125 Mg PO BIDWMEALS Aspirin Ec (Aspirin) 81 Mg Tablet.dr 1 Tab PO DAILY Amlodipine Besylate 5 Mg Tablet 5 Mg PO DAILY Trazodone Hcl 100 Mg Tablet 2 Tab PO QHS Hydromorphone Hcl 4 Mg Tablet 2 Mg PO TID Gabapentin 800 Mg Tablet 400 Mg PO TID Acetaminophen 325 Mg Tablet 2 Tab PO PRN Q4HRS PRN 30 Days Lexapro (Escitalopram Oxalate) 5 Mg Tablet 1 Tab PO DAILY Clopidogrel (Clopidogrel Bisulfate) 75 Mg Tablet 75 Mg PO DAILY Vitals/I & O Vital Sign - Last 24 Hours 03/30/20 03/30/20 03/30/20 03/30/20 11:00 15:00 19:00 19:50 Temp 98.0 98.0 98.4 98.0 98.0 98.4 Pulse 75 68 82 Resp 16 16 20 B/P (MAP) 92/61 (71) 107/70 (82) 115/57 (76) Pulse Ox 100 100 91 O2 Delivery Nasal Cannula Nasal Cannula Nasal Cannula Nasal Cannula O2 Flow Rate 2.0 2.0 2.0 2.0 03/30/20 03/31/20 03/31/20 03/31/20 23:00 03:00 07:00 08:00 Temp 97.4 98.4 98.1 97.4 98.4 98.1 Pulse 80 62 72 Resp 16 14 16 B/P (MAP) 101/50 (67) 106/51 (69) 107/35 (59) Pulse Ox 95 99 O2 Delivery Nasal Cannula Nasal Cannula Nasal Cannula Nasal Cannula O2 Flow Rate 2.0 2.0 2.0 2.0 Intake and Output 03/30/20 03/30/20 03/31/20 15:00 23:00 07:00 Intake Total 50 ml 100 ml Output Total 0 ml Balance 0 ml 50 ml 100 ml MEME LAGOS MD Mar 31, 2020 10:34
--- NOTE | 2020-03-31 15:06 | PDOC ---
PROGRESS NOTES Subjective Subjective Patient seen and examined Objective Objective Vital Signs Date Time Temp Pulse Resp B/P (MAP) Pulse Ox O2 Delivery O2 Flow Rate FiO2 03/31/20 11:08 97.9 87 16 91/46 (61) 100 Nasal Cannula 97.9 03/31/20 08:00 2.0 Intake and Output 03/31/20 07:00 Intake Total 150 ml Output Total 0 ml Balance 150 ml Intake Oral 150 ml Output Urine Total 0 ml # Voids 1 Physical Exam Abdomen: Normal bowel sounds Heart: Regular rate General: mild distress Lungs: Other (Mildly decreased breath sounds) Assessment Assessment Problems Medical Problems: (1) Chest pain Status: Acute (2) Person under investigation for COVID-19 Status: Acute Atypical chest pain: History of coronary disease and stenting as above. Patient minimally responsive to questioning. We will continue present cardiac medications. Chronic pain. Discussion as above. Controlled hypertension. Continue medical treatment. Diabetes mellitus as per the primary service. Hyperlipidemia. Continue present treatment. Comment Review of Relevant I have reviewed the following items sadie (where applicable) has been applied. Labs Laboratory Tests Test 03/30/20 12:06 White Blood Count 6.9 x10^3/uL (4.0-11.0) Red Blood Count 3.34 x10^6/uL (4.30-5.70) Hemoglobin 10.4 g/dL (13.0-17.5) Hematocrit 30.7 % (39.0-53.0) Mean Corpuscular Volume 92 fL (79-100) Mean Corpuscular Hemoglobin 31 pg (25-35) Mean Corpuscular Hemoglobin Concent 34 g/dL (31-37) Red Cell Distribution Width 15.2 % (11.5-14.5) Platelet Count 248 x10^3/uL (140-400) Neutrophils (%) (Auto) 69 % (31-73) Lymphocytes (%) (Auto) 21 % (24-48) Monocytes (%) (Auto) 8 % (0-9) Eosinophils (%) (Auto) 1 % (0-3) Basophils (%) (Auto) 1 % (0-3) Neutrophils # (Auto) 4.8 x10^3/uL (1.8-7.7) Lymphocytes # (Auto) 1.4 x10^3/uL (1.0-4.8) Monocytes # (Auto) 0.5 x10^3/uL (0.0-1.1) Eosinophils # (Auto) 0.1 x10^3/uL (0.0-0.7) Basophils # (Auto) 0.0 x10^3/uL (0.0-0.2) Sodium Level 141 mmol/L (136-145) Potassium Level 4.1 mmol/L (3.5-5.1) Chloride Level 102 mmol/L (98-107) Carbon Dioxide Level 31 mmol/L (21-32) Anion Gap 8 (6-14) Blood Urea Nitrogen 26 mg/dL (8-26) Creatinine 0.9 mg/dL (0.7-1.3) Estimated GFR (Cockcroft-Gault) 82.5 BUN/Creatinine Ratio 29 (6-20) Glucose Level 99 mg/dL (70-99) Calcium Level 9.0 mg/dL (8.5-10.1) Total Bilirubin 0.3 mg/dL (0.2-1.0) Aspartate Amino Transf (AST/SGOT) 20 U/L (15-37) Alanine Aminotransferase (ALT/SGPT) 37 U/L (16-63) Alkaline Phosphatase 132 U/L (46-116) Total Protein 6.7 g/dL (6.4-8.2) Albumin 2.9 g/dL (3.4-5.0) Albumin/Globulin Ratio 0.8 (1.0-1.7) Medications Current Medications Aspirin (Aspirin Chewable) 324 mg 1X ONCE PO Last administered on 03/28/20at 02:25; Start 03/28/20 at 02:00; Stop 03/28/20 at 02:01; Status DC Morphine Sulfate (Morphine Sulfate) 2 mg PRN Q15MIN PRN IV/SQ PAIN GREATER THAN 3/10 Last administered on 03/28/20at 05:56; Start 03/28/20 at 01:30; Stop 03/29/20 at 01:29; Status DC Ondansetron HCl (Zofran) 4 mg 1X ONCE IVP Last administered on 03/28/20at 02:24; Start 03/28/20 at 02:00; Stop 03/28/20 at 02:01; Status DC Ondansetron HCl (Zofran) 4 mg PRN Q8HRS PRN IV NAUSEA/VOMITING; Start 03/28/20 at 03:45; Stop 03/29/20 at 03:44; Status DC Nitroglycerin (Nitrostat) 0.4 mg PRN Q5MIN PRN SL CHEST PAIN; Start 03/28/20 at 03:45; Stop 03/29/20 at 03:44; Status DC Acetaminophen (Tylenol) 650 mg PRN Q4HRS PRN PO MILD-MOD PAIN / TEMP > 100.3'F Last administered on 03/30/20 06:23; Start 03/28/20 at 09:15 Amlodipine Besylate (Norvasc) 5 mg DAILY PO ; Start 03/29/20 at 09:00 Aspirin (Ecotrin) 81 mg DAILY PO Last administered on 03/31/20 09:05; Start 03/29/20 at 09:00 Carvedilol (Coreg) 3.125 mg BIDWMEALS PO Last administered on 03/28/20 16:09; Start 03/28/20 at 17:00 Clonazepam (KlonoPIN) 0.5 mg BID PO Last administered on 03/31/20 09:05; Start 03/28/20 at 10:00 Clopidogrel Bisulfate (Plavix) 75 mg DAILY PO Last administered on 03/31/20 09:05; Start 03/29/20 at 09:00 Hydromorphone HCl (Dilaudid) 2 mg TID PO Last administered on 03/29/20 21:22; Start 03/28/20 at 10:00; Stop 03/30/20 at 08:33; Status DC Trazodone HCl (Desyrel) 200 mg QHS PO Last administered on 03/30/20 20:22; Start 03/28/20 at 21:00 Citalopram Hydrobromide (CeleXA) 10 mg DAILY PO Last administered on 03/31/20 09:04; Start 03/29/20 at 09:00 Gabapentin (Neurontin) 400 mg TID PO Last administered on 03/31/20 09:05; Start 03/28/20 at 14:00 Enoxaparin Sodium (Lovenox 40mg Syringe) 40 mg Q24H SQ Last administered on 03/28/20at 16:08; Start 03/28/20 at 16:00 Atorvastatin Calcium (Lipitor) 10 mg QHS PO Last administered on 03/28/20at 19:50; Start 03/28/20 at 21:00; Stop 03/29/20 at 07:18; Status DC Atorvastatin Calcium (Lipitor) 40 mg QHS PO Last administered on 03/30/20at 20:22; Start 03/29/20 at 21:00 Multivitamins (Thera M Plus) 1 tab DAILY PO Last administered on 03/31/20at 09:05; Start 03/30/20 at 09:00 Ascorbic Acid (Vitamin C) 500 mg DAILY PO Last administered on 03/31/20at 09:04; Start 03/30/20 at 09:00 Hydromorphone HCl (Dilaudid) 2 mg TID PO Last administered on 03/30/20at 09:18; Start 03/30/20 at 09:00; Stop 03/30/20 at 13:48; Status DC Naloxone HCl (Narcan) 0.4 mg 1X ONCE IV Last administered on 03/30/20at 12:45; Start 03/30/20 at 12:45; Stop 03/30/20 at 12:49; Status DC Hydromorphone HCl (Dilaudid) 1 mg PRN TID PRN PO SEVERE PAIN 7-10; Start 03/30/20 at 14:00 Amino Acids/ Glycerin/ Electrolytes 1,000 ml @ 80 mls/hr [id number] IV Last administered on 03/31/20at 09:04; Start 03/31/20 at 07:15 Active Scripts Active Atorvastatin Calcium 10 Mg Tablet 40 Mg PO QHS 30 Days Reported Clonazepam (Clonazepam) 0.5 Mg Tablet 0.5 Mg PO BID Carvedilol (Carvedilol) 3.125 Mg Tablet 3.125 Mg PO BIDWMEALS Aspirin Ec (Aspirin) 81 Mg Tablet.dr 1 Tab PO DAILY Amlodipine Besylate 5 Mg Tablet 5 Mg PO DAILY Trazodone Hcl 100 Mg Tablet 2 Tab PO QHS Hydromorphone Hcl 4 Mg Tablet 2 Mg PO TID Gabapentin 800 Mg Tablet 400 Mg PO TID Acetaminophen 325 Mg Tablet 2 Tab PO PRN Q4HRS PRN 30 Days Lexapro (Escitalopram Oxalate) 5 Mg Tablet 1 Tab PO DAILY Clopidogrel (Clopidogrel Bisulfate) 75 Mg Tablet 75 Mg PO DAILY Vitals/I & O Vital Sign - Last 24 Hours 03/30/20 03/30/20 03/30/20 03/31/20 19:00 19:50 23:00 03:00 Temp 98.4 97.4 98.4 98.4 97.4 98.4 Pulse 82 80 62 Resp 20 16 14 B/P (MAP) 115/57 (76) 101/50 (67) 106/51 (69) Pulse Ox 91 95 O2 Delivery Nasal Cannula Nasal Cannula Nasal Cannula Nasal Cannula O2 Flow Rate 2.0 2.0 2.0 2.0 03/31/20 03/31/20 03/31/20 07:00 08:00 11:08 Temp 98.1 97.9 98.1 97.9 Pulse 72 87 Resp 16 16 B/P (MAP) 107/35 (59) 91/46 (61) Pulse Ox 99 100 O2 Delivery Nasal Cannula Nasal Cannula Nasal Cannula O2 Flow Rate 2.0 2.0 Intake and Output 03/30/20 03/30/20 03/31/20 15:00 23:00 07:00 Intake Total 50 ml 100 ml Output Total 0 ml Balance 0 ml 50 ml 100 ml MALLIKA AVALOS MD Mar 31, 2020 15:06
[2020-03-31] MEDS: ENOXAPARIN 40 MG/0.4 ML SYRINGE. SQ SCH (17:58)
[2020-03-31] MEDS: traZODone 100 MG TABLET. PO SCH ×2 (21:00→21:01)
[2020-03-31] MEDS: ATORVASTATIN CALCIUM 10 MG TABLET. PO SCH (21:01)
[2020-04-01 03:00] VITALS: BP 97/46
[2020-04-01 06:55] VITALS: BP 110/50
[2020-04-01] MEDS: AMINO AC 3%/ELECTROLYTE/GLYCER 1,000 ML IV SCH ×2 (08:15→19:37)
[2020-04-01] MEDS: CARVEDILOL 3.125 MG TABLET. PO SCH ×2 (08:54→17:41)
[2020-04-01] MEDS: CITALOPRAM 10 MG TABLET. PO SCH (08:54)
[2020-04-01] MEDS: amLODIPine BESYLATE 5 MG TABLET PO SCH (08:55)
[2020-04-01] MEDS: GABAPENTIN 400 MG CAPSULE. PO SCH ×3 (08:55→21:29)
[2020-04-01] MEDS: CLOPIDOGREL BISULFATE 75 MG TABLET PO SCH (08:55)
[2020-04-01] MEDS: ASPIRIN ENTERIC COATED 81 MG TABLET.DR. PO SCH (08:55)
[2020-04-01] MEDS: ASCORBIC ACID 500 MG TABLET PO SCH (08:58)
[2020-04-01] MEDS: MULTIVITAMIN with MINERAL TABLET. PO SCH (08:58)
[2020-04-01] MEDS: clonazePAM 0.5 MG TABLET PO SCH ×2 (08:58→21:29)
[2020-04-01 10:33] VITALS: BP 114/62
--- NOTE | 2020-04-01 10:52 | PDOC ---
PROGRESS NOTES Chief Complaint Chief Complaint Impression and plan Chest pain ACS ruled out COVID-19 negative History of CAD currently asymptomatic Chronic pain syndrome Dilaudid pump in his abdominal cavity Normocytic anemia Hyperglycemia Hypomagnesemia Plan Follow recommendations per sustainable design consultant Reviewed medical records from [facility] regarding his last admission Further recommendations based on clinical course Patient was declined to go back to his institution case management helping with discharge planning Resume home medication Supportive measures DVT prophylaxis with Lovenox Cardiology recommendations are greatly appreciated and are as follows: Recommendations 1. Continue secondary prevention. ASA/plavix. 40 mg lipitor 2. Presently no cardiac symptoms and seems to be seeking opioid, continue to t reat medically. Pt not cooperative only talks when wanting pain meds 3. 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 He had PCI to mid to distal desceding LAD with overlapping CORNELIUS. A referral was also mad to Dr. Mohit Rob opinion on complex PCI of RCA and OMB. No further reports of intervention so assumed that this has been treated medically. EF at that time estimated at 55%. d/w RN Presently no cardiac symptoms and seems to be seeking opioid, continue to treat medically. Pt not cooperative only talks when wanting pain meds History of Present Illness History of Present Illness 03/30 oversedated with iv pain meds meds adjusted 03/31 No acute events reported overnight, case discussed with nursing staff patient in no acute distress no complaints during my visit continues to be sedated, case management hopefully will help us with disposition 04/01 little bit more responsive today compared to yesterday. Discussed with case management, sending referrals for retirement unit Vitals Vitals Vital Signs Date Time Temp Pulse Resp B/P (MAP) Pulse Ox O2 Delivery O2 Flow Rate FiO2 04/01/20 10:33 97.5 62 17 114/62 (79) 93 Nasal Cannula 2.0 97.5 Physical Exam Physical Exam GEN.: No apparent distress. Alert and oriented in person. Thin looking HEENT: Head is normocephalic, atraumatic NECK: Supple. LUNGS: Clear to auscultation. HEART: RRR, S1, S2 present. Peripheral pulses intact ABDOMEN: Soft, nontender. Positive bowel sounds. EXTREMITIES: Without any cyanosis. Right below-knee amputation hyp erpigmented discoloration over the left lower extremity NEUROLOGIC: Normal speech, normal tone cranial nerves II to XII intact no motor or sensory deficit PSYCHIATRIC: Normal affect, normal mood. SKIN: No ulcerations General: mild distress Heart: Regular rate Abdomen: Normal bowel sounds Extremities: No cyanosis, Other (RAKA, LLE brownish hyperpigmentation) Skin: Other (sacral wound) Assessment and Plan Assessmemt and Plan Problems Medical Problems: (1) Chest pain Status: Acute (2) Person under investigation for COVID-19 Status: Acute Comment Review of Relevant I have reviewed the following items sadie (where applicable) has been applied. Labs Laboratory Tests Test 03/30/20 12:06 White Blood Count 6.9 x10^3/uL (4.0-11.0) Red Blood Count 3.34 x10^6/uL (4.30-5.70) Hemoglobin 10.4 g/dL (13.0-17.5) Hematocrit 30.7 % (39.0-53.0) Mean Corpuscular Volume 92 fL (79-100) Mean Corpuscular Hemoglobin 31 pg (25-35) Mean Corpuscular Hemoglobin Concent 34 g/dL (31-37) Red Cell Distribution Width 15.2 % (11.5-14.5) Platelet Count 248 x10^3/uL (140-400) Neutrophils (%) (Auto) 69 % (31-73) Lymphocytes (%) (Auto) 21 % (24-48) Monocytes (%) (Auto) 8 % (0-9) Eosinophils (%) (Auto) 1 % (0-3) Basophils (%) (Auto) 1 % (0-3) Neutrophils # (Auto) 4.8 x10^3/uL (1.8-7.7) Lymphocytes # (Auto) 1.4 x10^3/uL (1.0-4.8) Monocytes # (Auto) 0.5 x10^3/uL (0.0-1.1) Eosinophils # (Auto) 0.1 x10^3/uL (0.0-0.7) Basophils # (Auto) 0.0 x10^3/uL (0.0-0.2) Sodium Level 141 mmol/L (136-145) Potassium Level 4.1 mmol/L (3.5-5.1) Chloride Level 102 mmol/L (98-107) Carbon Dioxide Level 31 mmol/L (21-32) Anion Gap 8 (6-14) Blood Urea Nitrogen 26 mg/dL (8-26) Creatinine 0.9 mg/dL (0.7-1.3) Estimated GFR (Cockcroft-Gault) 82.5 BUN/Creatinine Ratio 29 (6-20) Glucose Level 99 mg/dL (70-99) Calcium Level 9.0 mg/dL (8.5-10.1) Total Bilirubin 0.3 mg/dL (0.2-1.0) Aspartate Amino Transf (AST/SGOT) 20 U/L (15-37) Alanine Aminotransferase (ALT/SGPT) 37 U/L (16-63) Alkaline Phosphatase 132 U/L (46-116) Total Protein 6.7 g/dL (6.4-8.2) Albumin 2.9 g/dL (3.4-5.0) Albumin/Globulin Ratio 0.8 (1.0-1.7) Medications Current Medications Aspirin (Aspirin Chewable) 324 mg 1X ONCE PO Last administered on 03/28/20at 02:25; Start 03/28/20 at 02:00; Stop 03/28/20 at 02:01; Status DC Morphine Sulfate (Morphine Sulfate) 2 mg PRN Q15MIN PRN IV/SQ PAIN GREATER THAN 3/10 Last administered on 03/28/20at 05:56; Start 03/28/20 at 01:30; Stop 03/29/20 at 01:29; Status DC Ondansetron HCl (Zofran) 4 mg 1X ONCE IVP Last administered on 03/28/20at 02:24; Start 03/28/20 at 02:00; Stop 03/28/20 at 02:01; Status DC Ondansetron HCl (Zofran) 4 mg PRN Q8HRS PRN IV NAUSEA/VOMITING; Start 03/28/20 at 03:45; Stop 03/29/20 at 03:44; Status DC Nitroglycerin (Nitrostat) 0.4 mg PRN Q5MIN PRN SL CHEST PAIN; Start 03/28/20 at 03:45; Stop 03/29/20 at 03:44; Status DC Acetaminophen (Tylenol) 650 mg PRN Q4HRS PRN PO MILD-MOD PAIN / TEMP > 100.3'F Last administered on 03/30/20 06:23; Start 03/28/20 at 09:15 Amlodipine Besylate (Norvasc) 5 mg DAILY PO Last administered on 04/01/20 08:55; Start 03/29/20 at 09:00 Aspirin (Ecotrin) 81 mg DAILY PO Last administered on 04/01/20 08:55; Start 03/29/20 at 09:00 Carvedilol (Coreg) 3.125 mg BIDWMEALS PO Last administered on 04/01/20 08:54; Start 03/28/20 at 17:00 Clonazepam (KlonoPIN) 0.5 mg BID PO Last administered on 04/01/20 08:58; Start 03/28/20 at 10:00 Clopidogrel Bisulfate (Plavix) 75 mg DAILY PO Last administered on 04/01/20 08:55; Start 03/29/20 at 09:00 Hydromorphone HCl (Dilaudid) 2 mg TID PO Last administered on 03/29/20 21:22; Start 03/28/20 at 10:00; Stop 03/30/20 at 08:33; Status DC Trazodone HCl (Desyrel) 200 mg QHS PO Last administered on 03/30/20 20:22; Start 03/28/20 at 21:00 Citalopram Hydrobromide (CeleXA) 10 mg DAILY PO Last administered on 04/01/20 08:54; Start 03/29/20 at 09:00 Gabapentin (Neurontin) 400 mg TID PO Last administered on 04/01/20 08:55; Start 03/28/20 at 14:00 Enoxaparin Sodium (Lovenox 40mg Syringe) 40 mg Q24H SQ Last administered on 03/31/20 17:58; Start 03/28/20 at 16:00 Atorvastatin Calcium (Lipitor) 10 mg QHS PO Last administered on 03/28/20 19:50; Start 03/28/20 at 21:00; Stop 03/29/20 at 07:18; Status DC Atorvastatin Calcium (Lipitor) 40 mg QHS PO Last administered on 03/31/20at 21:01; Start 03/29/20 at 21:00 Multivitamins (Thera M Plus) 1 tab DAILY PO Last administered on 04/01/20at 08:58; Start 03/30/20 at 09:00 Ascorbic Acid (Vitamin C) 500 mg DAILY PO Last administered on 04/01/20at 08:58; Start 03/30/20 at 09:00 Hydromorphone HCl (Dilaudid) 2 mg TID PO Last administered on 03/30/20at 09:18; Start 03/30/20 at 09:00; Stop 03/30/20 at 13:48; Status DC Naloxone HCl (Narcan) 0.4 mg 1X ONCE IV Last administered on 03/30/20at 12:45; Start 03/30/20 at 12:45; Stop 03/30/20 at 12:49; Status DC Hydromorphone HCl (Dilaudid) 1 mg PRN TID PRN PO SEVERE PAIN 7-10; Start 03/30/20 at 14:00 Amino Acids/ Glycerin/ Electrolytes 1,000 ml @ 80 mls/hr [id number] IV Last administered on 03/31/20at 21:01; Start 03/31/20 at 07:15 Active Scripts Active Atorvastatin Calcium 10 Mg Tablet 40 Mg PO QHS 30 Days Reported Clonazepam (Clonazepam) 0.5 Mg Tablet 0.5 Mg PO BID Carvedilol (Carvedilol) 3.125 Mg Tablet 3.125 Mg PO BIDWMEALS Aspirin Ec (Aspirin) 81 Mg Tablet.dr 1 Tab PO DAILY Amlodipine Besylate 5 Mg Tablet 5 Mg PO DAILY Trazodone Hcl 100 Mg Tablet 2 Tab PO QHS Hydromorphone Hcl 4 Mg Tablet 2 Mg PO TID Gabapentin 800 Mg Tablet 400 Mg PO TID Acetaminophen 325 Mg Tablet 2 Tab PO PRN Q4HRS PRN 30 Days Lexapro (Escitalopram Oxalate) 5 Mg Tablet 1 Tab PO DAILY Clopidogrel (Clopidogrel Bisulfate) 75 Mg Tablet 75 Mg PO DAILY Vitals/I & O Vital Sign - Last 24 Hours 03/31/20 03/31/20 03/31/20 6/7/20 11:08 15:00 17:00 19:00 Temp 97.9 98.0 98.0 97.4 97.9 98.0 98.0 97.4 Pulse 87 70 70 74 Resp 16 18 16 B/P (MAP) 91/46 (61) 92/56 (68) 92/56 (68) 118/55 (76) Pulse Ox 100 95 95 97 O2 Delivery Nasal Cannula Nasal Cannula Nasal Cannula Nasal Cannula O2 Flow Rate 2.0 2.0 2.0 03/31/20 03/31/20 04/01/20 04/01/20 20:00 23:00 03:00 06:55 Temp 97.4 97.8 97.6 97.4 97.8 97.6 Pulse 79 55 72 Resp 16 16 16 B/P (MAP) 108/50 (69) 97/46 (63) 110/50 (70) Pulse Ox 100 98 100 O2 Delivery Nasal Cannula Nasal Cannula Nasal Cannula Nasal Cannula O2 Flow Rate 2.0 2.0 2.0 2.0 04/01/20 04/01/20 04/01/20 04/01/20 07:35 08:54 08:55 10:33 Temp 97.5 97.5 Pulse 72 72 62 Resp 17 B/P (MAP) 110/50 110/50 114/62 (79) Pulse Ox 93 O2 Delivery Nasal Cannula Nasal Cannula O2 Flow Rate 2.0 2.0 Intake and Output 03/31/20 03/31/20 04/01/20 15:00 23:00 07:00 Intake Total 50 ml 0 ml 0 ml Balance 50 ml 0 ml 0 ml MEME LAGOS MD Apr 01, 2020 10:52
--- NOTE | 2020-04-01 12:33 | NUR ---
BASSAM following. Discussed with RN, RN advised pt is not coherent enough for BASSAM to discuss discharge planning. BASSAM contacted Tobin - [facility] ([phone]), Tobin reported they have been doing pt's laundry, meals, taking to run errands etc. They had pt moved into a home not far from their home so they were close by and have been his DPOA for about 6 years. Tobin agreeable to [facility], [facility], facilities in [place] and [place] due to proximity to where Tobin and his live. BASSAM faxed referral to [facility] - they are reviewing, faxed to [facility] and [facility] - awaiting acceptance decision. BASSAM will continue to follow. Addendum: 04/01/20 at 1422 by NIKKI BANEGAS [facility] is reviewing pt. Awaiting acceptance decision from [facility] and [employer]. BASSAM will continue to follow. Addendum: 04/01/20 at 1607 by NIKKI BANEGAS [facility] declined to take pt, awaiting response from [employer] [facility] and [facility].
[2020-04-01 15:00] VITALS: BP 139/72
--- NOTE | 2020-04-01 15:36 | NUR ---
Wound Care Wound Type/Assessment: Coccyx wound is resolved, left heel has stage II pu with pink wound bed Treatment Recommendations/Plan: Foam to coccyx for protection. Collagen, xeroform and foam to heel. Education provided: Pt not able to retain teaching dueto mental status. Offloading surface/device: Pt on P500 bed and rookeboot ordered. Recommended Referrals/Tests: none Discharge Recommendations for dressings: xeroform and foam to heel, offload,turn every 2 hours
[2020-04-01] MEDS: ENOXAPARIN 40 MG/0.4 ML SYRINGE. SQ SCH (16:12)
[2020-04-01 19:00] VITALS: BP 114/53
[2020-04-01] MEDS: traZODone 100 MG TABLET. PO SCH (21:29)
[2020-04-01] MEDS: ATORVASTATIN CALCIUM 10 MG TABLET. PO SCH (21:29)
[2020-04-01 23:00] VITALS: BP 115/46
[2020-04-02] MEDS: HYDROmorphone 2 MG TABLET PO PRN ×2 (01:59→14:18)
[2020-04-02 03:00] VITALS: BP 110/50
[2020-04-02 07:10] VITALS: BP 101/48
[2020-04-02] MEDS: CARVEDILOL 3.125 MG TABLET. PO SCH ×2 (08:00→16:57)
[2020-04-02] MEDS: clonazePAM 0.5 MG TABLET PO SCH ×3 (09:00→21:09)
[2020-04-02] MEDS: ASCORBIC ACID 500 MG TABLET PO SCH ×2 (09:00→10:36)
[2020-04-02] MEDS: amLODIPine BESYLATE 5 MG TABLET PO SCH (09:00)
[2020-04-02] MEDS: CLOPIDOGREL BISULFATE 75 MG TABLET PO SCH ×2 (09:00→10:36)
[2020-04-02] MEDS: MULTIVITAMIN with MINERAL TABLET. PO SCH ×2 (09:00→10:36)
[2020-04-02] MEDS: GABAPENTIN 400 MG CAPSULE. PO SCH ×3 (09:00→21:08)
[2020-04-02] MEDS: ASPIRIN ENTERIC COATED 81 MG TABLET.DR. PO SCH ×2 (09:00→10:36)
[2020-04-02] MEDS: CITALOPRAM 10 MG TABLET. PO SCH ×2 (09:00→10:36)
[2020-04-02] MEDS: AMINO AC 3%/ELECTROLYTE/GLYCER 1,000 ML IV SCH ×2 (09:01→21:09)
--- NOTE | 2020-04-02 09:03 | NUR ---
Pt arousable to shaking, answers yes or no questions then falls immediately back to sleep. Pt too drowsy this am to safely swallow am meds. Dr. Tate aware of pt's drowsiness this am.
--- NOTE | 2020-04-02 10:02 | NUR ---
BASSAM following. Discussed with RN, awaiting acceptance decision for SNU placement from [facility] and Tatyana BANEGAS will continue to follow. Addendum: 04/02/20 at 1323 by NIKKI BANEGAS Referral faxed to [facility]. [facility] declined to take pt. BASSAM will continue to follow.
[2020-04-02 10:26] VITALS: BP 130/45
--- NOTE | 2020-04-02 11:11 | PDOC ---
PROGRESS NOTES Chief Complaint Chief Complaint Impression and plan Chest pain ACS ruled out COVID-19 negative History of CAD currently asymptomatic Chronic pain syndrome Dilaudid pump in his abdominal cavity Normocytic anemia Hyperglycemia Hypomagnesemia Plan Follow recommendations per technical solutions consultant Reviewed medical records from [facility] regarding his last admission Further recommendations based on clinical course Patient was declined to go back to his institution case management helping with discharge planning Resume home medication Supportive measures DVT prophylaxis with Lovenox Cardiology recommendations are greatly appreciated and are as follows: Recommendations 1. Continue secondary prevention. ASA/plavix. 40 mg lipitor 2. Presently no cardiac symptoms and seems to be seeking opioid, continue to t reat medically. Pt not cooperative only talks when wanting pain meds 3. Follow up with outpt hosting engineer, may DC nsg home and will psych [facility] Pt had PCI on 12/27/2018 noted with critical mid distal LAD lesion, widely patent proximal LAD with mild to moderate restenosis, moderately severe stenosis to proximal OMB 2, total occlusion of proximal mid RCA with left to right collateral filling a large territory distribution of the right posterior descending and lateral branches. He had PCI to mid to distal desceding LAD with overlapping CORNELIUS. A referral was also mad to Dr. Mohit Rob opinion on complex PCI of RCA and OMB. No further reports of intervention so assumed that this has been treated medically. EF at that time estimated at 55%. d/w RN Presently no cardiac symptoms and seems to be seeking opioid, continue to treat medically. Pt not cooperative only talks when wanting pain meds History of Present Illness History of Present Illness 03/30 oversedated with iv pain meds meds adjusted 03/31 No acute events reported overnight, case discussed with nursing staff patient in no acute distress no complaints during my visit continues to be sedated, case management hopefully will help us with disposition 04/01 little bit more responsive today compared to yesterday. Discussed with case management, sending referrals for retirement unit 04/02 no acute events reported overnight, case discussed with nursing staff patient in no acute distress no complaints during my visit Vitals Vitals Vital Signs Date Time Temp Pulse Resp B/P (MAP) Pulse Ox O2 Delivery O2 Flow Rate FiO2 04/02/20 10:26 97.9 71 20 130/45 (73) 92 Nasal Cannula 2.0 97.9 Physical Exam Physical Exam GEN.: No apparent distress. Alert and oriented in person. Thin looking HEENT: Head is normocephalic, atraumatic NECK: Supple. LUNGS: Clear to auscultation. HEART: RRR, S1, S2 present. Peripheral pulses intact ABDOMEN: Soft, nontender. Positive bowel sounds. EXTREMITIES: Without any cyanosis. Right below-knee amputation hyperpigmented discoloration over the left lower extremity NEUROLOGIC: Normal speech, normal tone cranial nerves II to XII intact no motor or sensory deficit PSYCHIATRIC: Normal affect, normal mood. SKIN: No ulcerations General: mild distress Heart: Regular rate Abdomen: Normal bowel sounds Extremities: No cyanosis, Other (RAKA, LLE brownish hyperpigmentation) Skin: Other (sacral wound) Review of Systems Review of Systems Pertinent as per HPI otherwise 10 point review of system is negative Assessment and Plan Assessmemt and Plan Problems Medical Problems: (1) Chest pain Status: Acute (2) Person under investigation for COVID-19 Status: Acute Comment Review of Relevant I have reviewed the following items sadie (where applicable) has been applied. Medications Current Medications Aspirin (Aspirin Chewable) 324 mg 1X ONCE PO Last administered on 03/28/20at 02:25; Start 03/28/20 at 02:00; Stop 03/28/20 at 02:01; Status DC Morphine Sulfate (Morphine Sulfate) 2 mg PRN Q15MIN PRN IV/SQ PAIN GREATER THAN 3/10 Last administered on 03/28/20at 05:56; Start 03/28/20 at 01:30; Stop 03/29/20 at 01:29; Status DC Ondansetron HCl (Zofran) 4 mg 1X ONCE IVP Last administered on 03/28/20at 02:24; Start 03/28/20 at 02:00; Stop 03/28/20 at 02:01; Status DC Ondansetron HCl (Zofran) 4 mg PRN Q8HRS PRN IV NAUSEA/VOMITING; Start 03/28/20 at 03:45; Stop 03/29/20 at 03:44; Status DC Nitroglycerin (Nitrostat) 0.4 mg PRN Q5MIN PRN SL CHEST PAIN; Start 03/28/20 at 03:45; Stop 03/29/20 at 03:44; Status DC Acetaminophen (Tylenol) 650 mg PRN Q4HRS PRN PO MILD-MOD PAIN / TEMP > 100.3'F Last administered on 03/30/20 06:23; Start 03/28/20 at 09:15 Amlodipine Besylate (Norvasc) 5 mg DAILY PO Last administered on 04/01/20 08:55; Start 03/29/20 at 09:00 Aspirin (Ecotrin) 81 mg DAILY PO Last administered on 04/02/20 10:36; Start 03/29/20 at 09:00 Carvedilol (Coreg) 3.125 mg BIDWMEALS PO Last administered on 04/01/20 17:41; Start 03/28/20 at 17:00 Clonazepam (KlonoPIN) 0.5 mg BID PO Last administered on 04/02/20 10:36; Start 03/28/20 at 10:00 Clopidogrel Bisulfate (Plavix) 75 mg DAILY PO Last administered on 04/02/20 10:36; Start 03/29/20 at 09:00 Hydromorphone HCl (Dilaudid) 2 mg TID PO Last administered on 03/29/20 21:22; Start 03/28/20 at 10:00; Stop 03/30/20 at 08:33; Status DC Trazodone HCl (Desyrel) 200 mg QHS PO Last administered on 04/01/20 21:29; Start 03/28/20 at 21:00 Citalopram Hydrobromide (CeleXA) 10 mg DAILY PO Last administered on 04/02/20 10:36; Start 03/29/20 at 09:00 Gabapentin (Neurontin) 400 mg TID PO Last administered on 04/01/20 21:29; Start 03/28/20 at 14:00 Enoxaparin Sodium (Lovenox 40mg Syringe) 40 mg Q24H SQ Last administered on 04/01/20 16:12; Start 03/28/20 at 16:00 Atorvastatin Calcium (Lipitor) 10 mg QHS PO Last administered on 03/28/20 19:50; Start 03/28/20 at 21:00; Stop 03/29/20 at 07:18; Status DC Atorvastatin Calcium (Lipitor) 40 mg QHS PO Last administered on 04/01/20 21:29; Start 03/29/20 at 21:00 Multivitamins (Thera M Plus) 1 tab DAILY PO Last administered on 04/02/20at 10:36; Start 03/30/20 at 09:00 Ascorbic Acid (Vitamin C) 500 mg DAILY PO Last administered on 04/02/20at 10:36; Start 03/30/20 at 09:00 Hydromorphone HCl (Dilaudid) 2 mg TID PO Last administered on 03/30/20at 09:18; Start 03/30/20 at 09:00; Stop 03/30/20 at 13:48; Status DC Naloxone HCl (Narcan) 0.4 mg 1X ONCE IV Last administered on 03/30/20at 12:45; Start 03/30/20 at 12:45; Stop 03/30/20 at 12:49; Status DC Hydromorphone HCl (Dilaudid) 1 mg PRN TID PRN PO SEVERE PAIN 7-10 Last administered on 04/02/20at 01:59; Start 03/30/20 at 14:00 Amino Acids/ Glycerin/ Electrolytes 1,000 ml @ 80 mls/hr [id number] IV Last administered on 04/02/20at 09:01; Start 03/31/20 at 07:15 Active Scripts Active Atorvastatin Calcium 10 Mg Tablet 40 Mg PO QHS 30 Days Reported Clonazepam (Clonazepam) 0.5 Mg Tablet 0.5 Mg PO BID Carvedilol (Carvedilol) 3.125 Mg Tablet 3.125 Mg PO BIDWMEALS Aspirin Ec (Aspirin) 81 Mg Tablet.dr 1 Tab PO DAILY Amlodipine Besylate 5 Mg Tablet 5 Mg PO DAILY Trazodone Hcl 100 Mg Tablet 2 Tab PO QHS Hydromorphone Hcl 4 Mg Tablet 2 Mg PO TID Gabapentin 800 Mg Tablet 400 Mg PO TID Acetaminophen 325 Mg Tablet 2 Tab PO PRN Q4HRS PRN 30 Days Lexapro (Escitalopram Oxalate) 5 Mg Tablet 1 Tab PO DAILY Clopidogrel (Clopidogrel Bisulfate) 75 Mg Tablet 75 Mg PO DAILY Vitals/I & O Vital Sign - Last 24 Hours 04/01/20 04/01/20 04/01/20 04/01/20 15:00 17:41 19:00 19:45 Temp 96.5 98.3 96.5 98.3 Pulse 66 66 63 Resp 18 18 B/P (MAP) 139/72 (94) 139/72 114/53 (73) Pulse Ox 100 97 O2 Delivery Nasal Cannula Nasal Cannula Nasal Cannula O2 Flow Rate 2.0 2.0 2.0 04/01/20 04/02/20 04/02/20 04/02/20 23:00 01:59 03:00 03:20 Temp 98.6 97.7 98.6 97.7 Pulse 68 63 Resp 18 B/P (MAP) 115/46 (69) 110/50 (70) Pulse Ox 100 98 O2 Delivery Nasal Cannula Nasal Cannula Nasal Cannula Nasal Cannula O2 Flow Rate 2.0 2.0 2.0 2.0 04/02/20 04/02/20 04/02/20 04/02/20 07:10 08:00 09:00 10:26 Temp 97.8 97.9 97.8 97.9 Pulse 62 62 62 71 Resp 18 20 B/P (MAP) 101/48 (65) 101/48 101/48 130/45 (73) Pulse Ox 99 92 O2 Delivery Nasal Cannula Nasal Cannula O2 Flow Rate 2.0 2.0 Intake and Output 04/01/20 04/01/20 04/02/20 14:59 22:59 06:59 Intake Total 0 ml 1000 ml 60 ml Output Total 450 ml Balance 0 ml 1000 ml -390 ml MEME LAGOS MD Apr 02, 2020 11:11
--- NOTE | 2020-04-02 14:12 | PDOC ---
CARDIO Progress Notes Date and Time Date of Service 04/02/20 Time of Evaluation 1415 Subjective Subjective: No Chest Pain Vitals Vitals Vital Signs Date Time Temp Pulse Resp B/P (MAP) Pulse Ox O2 Delivery O2 Flow Rate FiO2 04/02/20 10:26 97.9 71 20 130/45 (73) 92 Nasal Cannula 2.0 97.9 Weight Weight [ ] Input and Output Intake and Output Intake and Output 04/02/20 07:00 Intake Total 1060 ml Output Total 450 ml Balance 610 ml Intake Oral 60 ml IV Total 1000 ml Output Urine Total 450 ml # Voids 3 Physical Exam HEENT: Neck Supple W Full Motion Chest: Symmetric LUNGS: Clear to Auscultation Heart: RRR (SR) Abdomen: Soft N/T Extremities: No Edema, No Calf Tenderness Neurology: alert Assessment Assessment 1. Atypical chest pain: suspect anxiety and MSK, trops nml no EKG changes. no CP overnight 2. Chronic pain with implanted dilaudid intrathecal pump 3. Drug seeking behavior? 4. CAD: 12/2018 as described below 5. HTN: controlled 6. DM2/HLP: LDL 185 8. Anxiety/panic disorder 9. ?noted with transient alteration of awareness? Recommendations Continue secondary prevention. ASA/plavix. 40 mg lipitor Follow up with outpt pipe tester, dara WEINER nsg home [facility] records Pt had PCI on 12/27/2018 noted with critical mid distal LAD lesion, widely patent proximal LAD with mild to moderate restenosis, moderately severe stenosis to proximal OMB 2, total occlusion of proximal mid RCA with left to right collateral filling a large territory distribution of the right posterior descending and lateral branches. He had PCI to mid to distal desceding LAD with overlapping CORNELIUS. A referral was also mad to Dr. Mohit Rob opinion on complex PCI of RCA and OMB. No further reports of intervention so assumed that this has been treated medically. EF at that time estimated at 55%. Justicifation of Admission Dx: Justifications for Admission: Justification of Admission Dx: Chana RUIZDERAVADANICA CARMEN Apr 02, 2020 14:12
[2020-04-02 14:46] VITALS: BP 103/54
[2020-04-02] MEDS: ENOXAPARIN 40 MG/0.4 ML SYRINGE. SQ SCH (16:57)
[2020-04-02 19:00] VITALS: BP 99/41
[2020-04-02] MEDS: ATORVASTATIN CALCIUM 10 MG TABLET. PO SCH (21:08)
[2020-04-02] MEDS: traZODone 100 MG TABLET. PO SCH (21:08)
[2020-04-02 23:00] VITALS: BP 98/51
[2020-04-03] MEDS: HYDROmorphone 2 MG TABLET PO PRN (00:52)
[2020-04-03 03:00] VITALS: BP 90/44
[2020-04-03 07:00] VITALS: BP 111/53
[2020-04-03] MEDS: CARVEDILOL 3.125 MG TABLET. PO SCH ×2 (08:00→16:55)
[2020-04-03] MEDS: amLODIPine BESYLATE 5 MG TABLET PO SCH (09:00)
[2020-04-03] MEDS: GABAPENTIN 400 MG CAPSULE. PO SCH ×3 (09:17→21:14)
[2020-04-03] MEDS: CITALOPRAM 10 MG TABLET. PO SCH (09:17)
[2020-04-03] MEDS: clonazePAM 0.5 MG TABLET PO SCH ×2 (09:17→21:14)
[2020-04-03] MEDS: MULTIVITAMIN with MINERAL TABLET. PO SCH (09:17)
[2020-04-03] MEDS: CLOPIDOGREL BISULFATE 75 MG TABLET PO SCH (09:17)
[2020-04-03] MEDS: ASPIRIN ENTERIC COATED 81 MG TABLET.DR. PO SCH (09:18)
[2020-04-03] MEDS: ASCORBIC ACID 500 MG TABLET PO SCH (09:18)
[2020-04-03] MEDS: AMINO AC 3%/ELECTROLYTE/GLYCER 1,000 ML IV SCH (10:15)
--- NOTE | 2020-04-03 10:30 | PDOC ---
PROGRESS NOTES Chief Complaint Chief Complaint Impression and plan Chest pain ACS ruled out COVID-19 negative History of CAD currently asymptomatic Chronic pain syndrome Dilaudid pump in his abdominal cavity Normocytic anemia Hyperglycemia Hypomagnesemia Plan Follow recommendations per benefits sales consultant Reviewed medical records from [facility] regarding his last admission Further recommendations based on clinical course Patient was declined to go back to his institution case management helping with discharge planning Resume home medication Supportive measures DVT prophylaxis with Lovenox Cardiology recommendations are greatly appreciated and are as follows: Recommendations 1. Continue secondary prevention. ASA/plavix. 40 mg lipitor 2. Presently no cardiac symptoms and seems to be seeking opioid, continue to t reat medically. Pt not cooperative only talks when wanting pain meds 3. Follow up with outpt journey lineman, may DC nsg home and will psych f/u [facility] records reviewed Pt had PCI on 12/27/2018 noted with critical mid distal LAD lesion, widely patent proximal LAD with mild to moderate restenosis, moderately severe stenosis to proximal OMB 2, total occlusion of proximal mid RCA with left to right collateral filling a large territory distribution of the right posterior descending and lateral branches. He had PCI to mid to distal desceding LAD with overlapping CORNELIUS. A referral was also mad to Dr. Mohit Rob opinion on complex PCI of RCA and OMB. No further reports of intervention so assumed that this has been treated medically. EF at that time estimated at 55%. d/w RN Presently no cardiac symptoms and seems to be seeking opioid, continue to treat medically. Pt not cooperative only talks when wanting pain meds History of Present Illness History of Present Illness 03/30 oversedated with iv pain meds meds adjusted 03/31 No acute events reported overnight, case discussed with nursing staff patient in no acute distress no complaints during my visit continues to be sedated, case management hopefully will help us with disposition 04/01 little bit more responsive today compared to yesterday. Discussed with case management, sending referrals [facility] 04/02 no acute events reported overnight, case discussed with nursing staff patient in no acute distress no complaints during my visit 04/03 no new changes, the patient continues to be quite sedated, it is going to be hard to place him given that apparently he is no longer accepted in the [facility] and the facility where he was referred is no longer accepting him. Vitals Vitals Vital Signs Date Time Temp Pulse Resp B/P (MAP) Pulse Ox O2 Delivery O2 Flow Rate FiO2 04/03/20 09:00 63 111/53 04/03/20 08:00 Nasal Cannula 2.0 04/03/20 07:00 98.4 16 98 98.4 Physical Exam Physical Exam GEN.: No apparent distress. Alert and oriented in person. Thin looking HEENT: Head is normocephalic, atraumatic NECK: Supple. LUNGS: Clear to auscultation. HEART: RRR, S1, S2 present. Peripheral pulses intact ABDOMEN: Soft, nontender. Positive bowel sounds. EXTREMITIES: Without any cyanosis. Right below-knee amputation hyperpigmented discoloration over the left lower extremity NEUROLOGIC: Normal speech, normal tone cranial nerves II to XII intact no motor or sensory deficit PSYCHIATRIC: Normal affect, normal mood. SKIN: No ulcerations General: mild distress Heart: Regular rate Abdomen: Normal bowel sounds Extremities: No cyanosis, Other (RAKA, LLE brownish hyperpigmentation) Skin: Other (sacral wound) Assessment and Plan Assessmemt and Plan Problems Medical Problems: (1) Chest pain Status: Acute (2) Person under investigation for COVID-19 Status: Acute Comment Review of Relevant I have reviewed the following items sadie (where applicable) has been applied. Medications Current Medications Aspirin (Aspirin Chewable) 324 mg 1X ONCE PO Last administered on 03/28/20at 02:25; Start 03/28/20 at 02:00; Stop 03/28/20 at 02:01; Status DC Morphine Sulfate (Morphine Sulfate) 2 mg PRN Q15MIN PRN IV/SQ PAIN GREATER THAN 3/10 Last administered on 03/28/20at 05:56; Start 03/28/20 at 01:30; Stop 03/29/20 at 01:29; Status DC Ondansetron HCl (Zofran) 4 mg 1X ONCE IVP Last administered on 03/28/20at 02:24; Start 03/28/20 at 02:00; Stop 03/28/20 at 02:01; Status DC Ondansetron HCl (Zofran) 4 mg PRN Q8HRS PRN IV NAUSEA/VOMITING; Start 03/28/20 at 03:45; Stop 03/29/20 at 03:44; Status DC Nitroglycerin (Nitrostat) 0.4 mg PRN Q5MIN PRN SL CHEST PAIN; Start 03/28/20 at 03:45; Stop 03/29/20 at 03:44; Status DC Acetaminophen (Tylenol) 650 mg PRN Q4HRS PRN PO MILD-MOD PAIN / TEMP > 100.3'F Last administered on 03/30/20 06:23; Start 03/28/20 at 09:15 Amlodipine Besylate (Norvasc) 5 mg DAILY PO Last administered on 04/01/20 08:55; Start 03/29/20 at 09:00 Aspirin (Ecotrin) 81 mg DAILY PO Last administered on 04/03/20 09:18; Start 03/29/20 at 09:00 Carvedilol (Coreg) 3.125 mg BIDWMEALS PO Last administered on 04/02/20 16:57; Start 03/28/20 at 17:00 Clonazepam (KlonoPIN) 0.5 mg BID PO Last administered on 04/03/20 09:17; Start 03/28/20 at 10:00 Clopidogrel Bisulfate (Plavix) 75 mg DAILY PO Last administered on 04/03/20 09:17; Start 03/29/20 at 09:00 Hydromorphone HCl (Dilaudid) 2 mg TID PO Last administered on 03/29/20 21:22; Start 03/28/20 at 10:00; Stop 03/30/20 at 08:33; Status DC Trazodone HCl (Desyrel) 200 mg QHS PO Last administered on 04/02/20 21:08; Start 03/28/20 at 21:00 Citalopram Hydrobromide (CeleXA) 10 mg DAILY PO Last administered on 04/03/20 09:17; Start 03/29/20 at 09:00 Gabapentin (Neurontin) 400 mg TID PO Last administered on 04/03/20 09:17; Start 03/28/20 at 14:00 Enoxaparin Sodium (Lovenox 40mg Syringe) 40 mg Q24H SQ Last administered on 04/02/20 16:57; Start 03/28/20 at 16:00 Atorvastatin Calcium (Lipitor) 10 mg QHS PO Last administered on 03/28/20 19:50; Start 03/28/20 at 21:00; Stop 03/29/20 at 07:18; Status DC Atorvastatin Calcium (Lipitor) 40 mg QHS PO Last administered on 04/02/20at 21:08; Start 03/29/20 at 21:00 Multivitamins (Thera M Plus) 1 tab DAILY PO Last administered on 04/03/20at 09:17; Start 03/30/20 at 09:00 Ascorbic Acid (Vitamin C) 500 mg DAILY PO Last administered on 04/03/20at 09:18; Start 03/30/20 at 09:00 Hydromorphone HCl (Dilaudid) 2 mg TID PO Last administered on 03/30/20at 09:18; Start 03/30/20 at 09:00; Stop 03/30/20 at 13:48; Status DC Naloxone HCl (Narcan) 0.4 mg 1X ONCE IV Last administered on 03/30/20at 12:45; Start 03/30/20 at 12:45; Stop 03/30/20 at 12:49; Status DC Hydromorphone HCl (Dilaudid) 1 mg PRN TID PRN PO SEVERE PAIN 7-10 Last administered on 04/03/20at 00:52; Start 03/30/20 at 14:00 Amino Acids/ Glycerin/ Electrolytes 1,000 ml @ 80 mls/hr [id number] IV Last administered on 04/02/20at 21:09; Start 03/31/20 at 07:15 Active Scripts Active Atorvastatin Calcium 10 Mg Tablet 40 Mg PO QHS 30 Days Reported Clonazepam (Clonazepam) 0.5 Mg Tablet 0.5 Mg PO BID Carvedilol (Carvedilol) 3.125 Mg Tablet 3.125 Mg PO BIDWMEALS Aspirin Ec (Aspirin) 81 Mg Tablet.dr 1 Tab PO DAILY Amlodipine Besylate 5 Mg Tablet 5 Mg PO DAILY Trazodone Hcl 100 Mg Tablet 2 Tab PO QHS Hydromorphone Hcl 4 Mg Tablet 2 Mg PO TID Gabapentin 800 Mg Tablet 400 Mg PO TID Acetaminophen 325 Mg Tablet 2 Tab PO PRN Q4HRS PRN 30 Days Lexapro (Escitalopram Oxalate) 5 Mg Tablet 1 Tab PO DAILY Clopidogrel (Clopidogrel Bisulfate) 75 Mg Tablet 75 Mg PO DAILY Vitals/I & O Vital Sign - Last 24 Hours 04/02/20 04/02/20 04/02/20 04/02/20 14:18 14:46 15:25 16:57 Temp 97.6 97.6 Pulse 64 64 Resp 24 20 B/P (MAP) 103/54 (70) 103/54 Pulse Ox 94 O2 Delivery Nasal Cannula Nasal Cannula Nasal Cannula O2 Flow Rate 2.0 2.0 2.0 04/02/20 04/02/20 04/02/20 04/03/20 19:00 20:30 23:00 00:52 Temp 98.6 97.6 98.6 97.6 Pulse 58 59 Resp 18 18 B/P (MAP) 99/41 (60) 98/51 (67) Pulse Ox 99 98 O2 Delivery Nasal Cannula Nasal Cannula Nasal Cannula Nasal Cannula O2 Flow Rate 2.0 2.0 2.0 2.0 04/03/20 04/03/20 04/03/20 04/03/20 02:00 03:00 07:00 08:00 Temp 97.8 98.4 97.8 98.4 Pulse 61 63 63 Resp 18 16 B/P (MAP) 90/44 (59) 111/53 (72) 111/53 Pulse Ox 100 98 O2 Delivery Nasal Cannula Nasal Cannula Room Air O2 Flow Rate 2.0 2.0 04/03/20 04/03/20 08:00 09:00 Pulse 63 B/P (MAP) 111/53 O2 Delivery Nasal Cannula O2 Flow Rate 2.0 Intake and Output 04/02/20 04/02/20 04/03/20 14:59 22:59 06:59 Intake Total 50 ml 700 ml 160 ml Balance 50 ml 700 ml 160 ml Nutrition Consultation Dietary Evaluation: Recommendations by RD: Dietary education by RD, Increase Calorie Intake, Protein supplementation, PPN/TPN Comments: rec continue cardiac diet/ ensure pudding bid continue PPN @ 80 ml/hr until po intake improves to >75% meals Expected Outcomes/Goals: to meet >75% est nutr needs improved wound status Malnutrition Findings: Body Fat Depletion (Non Severe: Mild Depletion Weight Status: Underweight MEME LAGOS MD Apr 03, 2020 10:30
[2020-04-03 11:00] VITALS: BP 81/37
--- NOTE | 2020-04-03 13:46 | NUR ---
BASSAM following. Discussed with RN. BASSAM spoke with SHRUTHI Rudd again today, okay with referral to [facility] and facilities in [facility], [place] and [place]. [place] and [facility] declined to take patient. Referral faxed to [facility] and [facility]. Awaiting acceptance decisions. SW to fax to other facilities when memory clears on fax machine.
[2020-04-03 15:00] VITALS: BP 142/60
[2020-04-03] MEDS: ENOXAPARIN 40 MG/0.4 ML SYRINGE. SQ SCH (16:55)
[2020-04-03 19:00] VITALS: BP 117/60
[2020-04-03] MEDS: ATORVASTATIN CALCIUM 10 MG TABLET. PO SCH (21:14)
[2020-04-03] MEDS: traZODone 100 MG TABLET. PO SCH (21:14)
[2020-04-03 23:16] VITALS: BP 100/58
[2020-04-04 03:00] VITALS: BP 96/42
[2020-04-04] MEDS: CLOPIDOGREL BISULFATE 75 MG TABLET PO SCH (07:41)
[2020-04-04] MEDS: GABAPENTIN 400 MG CAPSULE. PO SCH ×3 (07:41→21:22)
[2020-04-04] MEDS: amLODIPine BESYLATE 5 MG TABLET PO SCH (07:41)
[2020-04-04] MEDS: ASCORBIC ACID 500 MG TABLET PO SCH (07:41)
[2020-04-04] MEDS: ASPIRIN ENTERIC COATED 81 MG TABLET.DR. PO SCH (07:41)
[2020-04-04] MEDS: MULTIVITAMIN with MINERAL TABLET. PO SCH (07:41)
[2020-04-04] MEDS: CARVEDILOL 3.125 MG TABLET. PO SCH ×2 (07:41→17:00)
[2020-04-04] MEDS: clonazePAM 0.5 MG TABLET PO SCH ×2 (07:41→21:22)
[2020-04-04] MEDS: CITALOPRAM 10 MG TABLET. PO SCH (07:41)
[2020-04-04 08:05] VITALS: BP 107/60
--- NOTE | 2020-04-04 09:26 | NUR ---
BASSAM following. Discussed with RN, BASSAM faxed referral to [facility]. BASSAM attempted to call [facility], however no one answered and no option for voicemail. BASSAM left voicemail with [facility] re acceptance decision. BASSAM received voicemail from Deandre DANGELO at pt's pain clinic, requesting return call. BASSAM contacted Deandre back, Deandre expressed concern about discharge planning for pt and make sure pt can make his pain appointments. BASSAM will continue to follow. Addendum: 04/04/20 at 1251 by NIKKI BANEGAS [facility] declined to take pt. [facility] is reviewing, however are concerned about pt's participation and pain med seeking. Referral faxed to [facility] in [place], [place] (ph: [phone], fax: [phone]). [facility] still is not answering the phone. BASSAM will continue to follow. Addendum: 04/04/20 at 1515 by NIKKI BANEGAS [facility] are reviewing pt and considering possible acceptance pending more information from pt's pain clinic. [facility] are verifying insurance and may be accepting pt. SW will continue to follow.
[2020-04-04 11:04] VITALS: BP 117/62
--- NOTE | 2020-04-04 13:34 | PDOC ---
PROGRESS NOTES Chief Complaint Chief Complaint Impression and plan Chest pain ACS ruled out COVID-19 negative History of CAD currently asymptomatic Chronic pain syndrome Dilaudid pump in his abdominal cavity Normocytic anemia Hyperglycemia Hypomagnesemia Plan Follow recommendations per sap consultant Reviewed medical records from [facility] regarding his last admission Further recommendations based on clinical course Patient was declined to go back to his institution case management helping with discharge planning Resume home medication Supportive measures DVT prophylaxis with Lovenox Cardiology recommendations are greatly appreciated and are as follows: Recommendations 1. Continue secondary prevention. ASA/plavix. 40 mg lipitor 2. Presently no cardiac symptoms and seems to be seeking opioid, continue to t reat medically. Pt not cooperative only talks when wanting pain meds 3. Follow up with outpt rn procedure, may DC nsg home and will psych f/u [facility] records reviewed Pt had PCI on 12/27/2018 noted with critical mid distal LAD lesion, widely patent proximal LAD with mild to moderate restenosis, moderately severe stenosis to proximal OMB 2, total occlusion of proximal mid RCA with left to right collateral filling a large territory distribution of the right posterior descending and lateral branches. He had PCI to mid to distal desceding LAD with overlapping CORNELIUS. A referral was also mad to Dr. Mohit Rob opinion on complex PCI of RCA and OMB. No further reports of intervention so assumed that this has been treated medically. EF at that time estimated at 55%. d/w RN Presently no cardiac symptoms and seems to be seeking opioid, continue to treat medically. Pt not cooperative only talks when wanting pain meds History of Present Illness History of Present Illness 03/30 oversedated with iv pain meds meds adjusted 03/31 No acute events reported overnight, case discussed with nursing staff patient in no acute distress no complaints during my visit continues to be sedated, case management hopefully will help us with disposition 04/01 little bit more responsive today compared to yesterday. Discussed with case management, sending referrals for assisted unit 04/02 no acute events reported overnight, case discussed with nursing staff patient in no acute distress no complaints during my visit 04/03 no new changes, the patient continues to be quite sedated, it is going to be hard to place him given that [facility] is no longer accepting him. 04/04 - seeking placement Vitals Vitals Vital Signs Date Time Temp Pulse Resp B/P (MAP) Pulse Ox O2 Delivery O2 Flow Rate FiO2 04/04/20 11:04 97.4 77 17 117/62 (80) 94 Nasal Cannula 2.0 97.4 Physical Exam Physical Exam GEN.: No apparent distress. Alert and oriented in person. Thin looking HEENT: Head is normocephalic, atraumatic NECK: Supple. LUNGS: Clear to auscultation. HEART: RRR, S1, S2 present. Peripheral pulses intact ABDOMEN: Soft, nontender. Positive bowel sounds. EXTREMITIES: Without any cyanosis. Right below-knee amputation hyperpigmented discoloration over the left lower extremity NEUROLOGIC: Normal speech, normal tone cranial nerves II to XII intact no motor or sensory deficit PSYCHIATRIC: Normal affect, normal mood. SKIN: No ulcerations General: mild distress Heart: Regular rate Abdomen: Normal bowel sounds Extremities: No cyanosis, Other (RAKA, LLE brownish hyperpigmentation) Skin: Other (sacral wound) Assessment and Plan Assessmemt and Plan Problems Medical Problems: (1) Chest pain Status: Acute (2) Person under investigation for COVID-19 Status: Acute Comment Review of Relevant I have reviewed the following items sadie (where applicable) has been applied. Medications Current Medications Aspirin (Aspirin Chewable) 324 mg 1X ONCE PO Last administered on 03/28/20at 02:25; Start 03/28/20 at 02:00; Stop 03/28/20 at 02:01; Status DC Morphine Sulfate (Morphine Sulfate) 2 mg PRN Q15MIN PRN IV/SQ PAIN GREATER THAN 3/10 Last administered on 03/28/20at 05:56; Start 03/28/20 at 01:30; Stop 03/29/20 at 01:29; Status DC Ondansetron HCl (Zofran) 4 mg 1X ONCE IVP Last administered on 03/28/20at 02:24; Start 03/28/20 at 02:00; Stop 03/28/20 at 02:01; Status DC Ondansetron HCl (Zofran) 4 mg PRN Q8HRS PRN IV NAUSEA/VOMITING; Start 03/28/20 at 03:45; Stop 03/29/20 at 03:44; Status DC Nitroglycerin (Nitrostat) 0.4 mg PRN Q5MIN PRN SL CHEST PAIN; Start 03/28/20 at 03:45; Stop 03/29/20 at 03:44; Status DC Acetaminophen (Tylenol) 650 mg PRN Q4HRS PRN PO MILD-MOD PAIN / TEMP > 100.3'F Last administered on 03/30/20 06:23; Start 03/28/20 at 09:15 Amlodipine Besylate (Norvasc) 5 mg DAILY PO Last administered on 04/01/20 08:55; Start 03/29/20 at 09:00 Aspirin (Ecotrin) 81 mg DAILY PO Last administered on 04/04/20 07:41; Start 03/29/20 at 09:00 Carvedilol (Coreg) 3.125 mg BIDWMEALS PO Last administered on 04/02/20 16:57; Start 03/28/20 at 17:00 Clonazepam (KlonoPIN) 0.5 mg BID PO Last administered on 04/04/20 07:41; Start 03/28/20 at 10:00 Clopidogrel Bisulfate (Plavix) 75 mg DAILY PO Last administered on 04/04/20 07:41; Start 03/29/20 at 09:00 Hydromorphone HCl (Dilaudid) 2 mg TID PO Last administered on 03/29/20 21:22; Start 03/28/20 at 10:00; Stop 03/30/20 at 08:33; Status DC Trazodone HCl (Desyrel) 200 mg QHS PO Last administered on 04/03/20 21:14; Start 03/28/20 at 21:00 Citalopram Hydrobromide (CeleXA) 10 mg DAILY PO Last administered on 04/04/20 07:41; Start 03/29/20 at 09:00 Gabapentin (Neurontin) 400 mg TID PO Last administered on 04/04/20 07:41; Start 03/28/20 at 14:00 Enoxaparin Sodium (Lovenox 40mg Syringe) 40 mg Q24H SQ Last administered on 04/03/20 16:55; Start 03/28/20 at 16:00 Atorvastatin Calcium (Lipitor) 10 mg QHS PO Last administered on 03/28/20 19:50; Start 03/28/20 at 21:00; Stop 03/29/20 at 07:18; Status DC Atorvastatin Calcium (Lipitor) 40 mg QHS PO Last administered on 04/03/20at 21:14; Start 03/29/20 at 21:00 Multivitamins (Thera M Plus) 1 tab DAILY PO Last administered on 04/04/20at 07:41; Start 03/30/20 at 09:00 Ascorbic Acid (Vitamin C) 500 mg DAILY PO Last administered on 04/04/20at 07:41; Start 03/30/20 at 09:00 Hydromorphone HCl (Dilaudid) 2 mg TID PO Last administered on 03/30/20at 09:18; Start 03/30/20 at 09:00; Stop 03/30/20 at 13:48; Status DC Naloxone HCl (Narcan) 0.4 mg 1X ONCE IV Last administered on 03/30/20at 12:45; Start 03/30/20 at 12:45; Stop 03/30/20 at 12:49; Status DC Hydromorphone HCl (Dilaudid) 1 mg PRN TID PRN PO SEVERE PAIN 7-10 Last administered on 04/03/20at 00:52; Start 03/30/20 at 14:00 Amino Acids/ Glycerin/ Electrolytes 1,000 ml @ 80 mls/hr [id number] IV Last administered on 04/02/20at 21:09; Start 03/31/20 at 07:15; Stop 04/03/20 at 19:11; Status DC Active Scripts Active Atorvastatin Calcium 10 Mg Tablet 40 Mg PO QHS 30 Days Reported Clonazepam (Clonazepam) 0.5 Mg Tablet 0.5 Mg PO BID Carvedilol (Carvedilol) 3.125 Mg Tablet 3.125 Mg PO BIDWMEALS Aspirin Ec (Aspirin) 81 Mg Tablet.dr 1 Tab PO DAILY Amlodipine Besylate 5 Mg Tablet 5 Mg PO DAILY Trazodone Hcl 100 Mg Tablet 2 Tab PO QHS Hydromorphone Hcl 4 Mg Tablet 2 Mg PO TID Gabapentin 800 Mg Tablet 400 Mg PO TID Acetaminophen 325 Mg Tablet 2 Tab PO PRN Q4HRS PRN 30 Days Lexapro (Escitalopram Oxalate) 5 Mg Tablet 1 Tab PO DAILY Clopidogrel (Clopidogrel Bisulfate) 75 Mg Tablet 75 Mg PO DAILY Vitals/I & O Vital Sign - Last 24 Hours 6/10/20 6/10/20 6/10/20 6/10/20 15:00 19:00 20:00 23:16 Temp 97.5 98.0 98.0 97.5 98.0 98.0 Pulse 73 72 70 Resp 17 18 18 B/P (MAP) 142/60 (87) 117/60 (79) 100/58 (72) Pulse Ox 100 96 98 O2 Delivery Nasal Cannula Nasal Cannula Nasal Cannula Nasal Cannula O2 Flow Rate 2.0 2.0 2.0 2.0 04/04/20 04/04/20 04/04/20 04/04/20 03:00 07:44 08:05 11:04 Temp 98.3 97.3 97.4 98.3 97.3 97.4 Pulse 68 78 77 Resp 18 17 B/P (MAP) 96/42 (60) 107/60 (76) 117/62 (80) Pulse Ox 98 98 94 O2 Delivery Nasal Cannula Nasal Cannula Nasal Cannula Nasal Cannula O2 Flow Rate 2.0 2.0 2.0 2.0 Intake and Output0 04/03/20 04/03/20 04/04/20 15:00 23:00 07:00 Intake Total 1060 ml 60 ml Balance 1060 ml 60 ml Nutrition Consultation Dietary Evaluation: Recommendations by RD: Dietary education by RD, Increase Calorie Intake, Protein supplementation, PPN/TPN Comments: rec continue cardiac diet/ ensure pudding bid continue PPN @ 80 ml/hr until po intake improves to >75% meals Expected Outcomes/Goals: to meet >75% est nutr needs improved wound status Malnutrition Findings: Body Fat Depletion (Non Severe: Mild Depletion Weight Status: Underweight MIQUEL ECHEVERRIA MD Apr 04, 2020 13:34
--- NOTE | 2020-04-04 14:07 | NUR ---
Wound Care Wound Type/Assessment: Coccyx wound is resolved, left heel has stage III pu with slough, eschar and pink wound bed Treatment Recommendations/Plan: Foam to coccyx for protection. silver contact layer, AG and foam to heel. 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 Offloading surface/device: Pt on P500 bed and rooke boot ordered. Recommended Referrals/Tests: none Discharge Recommendations for dressings: see above dressing recs, offload, turn every 2 hours
[2020-04-04 15:10] VITALS: BP 87/48
--- NOTE | 2020-04-04 15:18 | SNU/HH DC ---
DISCHARGE ORDERS DISCHARGE INFORMATION: DISCHARGE DATE: Apr 04, 2020 FINAL DIAGNOSIS Chest pain History of CAD currently asymptomatic Chronic pain syndrome w. Dilaudid pump in his abdominal cavity Normocytic anemia Hyperglycemia Hypomagnesemia weakness and debility Problems Medical Problems: (1) Chest pain Status: Acute (2) Person under investigation for COVID-19 Status: Acute CONDITION ON DISCHARGE: Stable CODE STATUS: Code Status: Full CARE HOME: SNF STAY <30 DAYS: Yes POST DISCHARGE ORDERS: ACTIVITY ORDERS: No restrictions WEIGHT BEARING STATUS: No restrictions DIET AFTER DISCHARGE: Cardiac TREATMENT/EQUIPMENT ORDERS: Physical Therapy For: Evalulation/Treatment Occupational Therapy For: Evaluation/Treatment DISCHARGE MEDICATIONS: Home Meds Active Scripts Atorvastatin Calcium (ATORVASTATIN CALCIUM) 10 Mg Tablet, 40 MG PO QHS for dyslipidemia for 30 Days, #120 TAB Prov:MEME LAGOS MD 03/29/20 Reported Medications Clonazepam (CLONAZEPAM ) 0.5 Mg Tablet, 0.5 MG PO BID for FOR ANXIETY, TAB 03/28/20 Carvedilol (CARVEDILOL ) 3.125 Mg Tablet, 3.125 MG PO BIDWMEALS for CARDIAC, TAB 03/28/20 Aspirin (ASPIRIN EC) 81 Mg Tablet.dr, 1 TAB PO DAILY for CAD , #30 TAB 3 Refills 03/28/20 Amlodipine Besylate (AMLODIPINE BESYLATE) 5 Mg Tablet, 5 MG PO DAILY for htn , TAB 20 Trazodone Hcl (TRAZODONE HCL) 100 Mg Tablet, 2 TAB PO QHS for insomnia , #30 TAB 1 Refill 03/28/20 Hydromorphone Hcl (HYDROMORPHONE HCL) 4 Mg Tablet, 2 MG PO TID for chronic pain , TAB 03/28/20 Gabapentin (GABAPENTIN) 800 Mg Tablet, 400 MG PO TID for NEUROGENIC PAIN, TAB 03/28/20 Acetaminophen (ACETAMINOPHEN) 325 Mg Tablet, 2 TAB PO PRN Q4HRS PRN for pain or fever for 30 Days, #30 TAB 0 Refills 03/28/20 Escitalopram Oxalate (LEXAPRO) 5 Mg Tablet, 1 TAB PO DAILY for depression, #30 TAB 2 Refills 03/28/20 Clopidogrel Bisulfate (CLOPIDOGREL) 75 Mg Tablet, 75 MG PO DAILY for TO PREVENT BLOOD CLOTS, #30 TAB 0 Refills 03/28/20 MIQUEL ECHEVERRIA MD Apr 04, 2020 15:18
--- NOTE | 2020-04-04 15:19 | PDOC3 ---
Discharge Summary Visit Information Date of Admission: Mar 28, 2020 Date of Discharge: Apr 04, 2020 Final Diagnosis Chest pain ACS ruled out COVID-19 negative History of CAD currently asymptomatic Chronic pain syndrome Dilaudid pump in his abdominal cavity Normocytic anemia Hyperglycemia Hypomagnesemia weakness and debility Problems Medical Problems: (1) Chest pain Status: Acute (2) Person under investigation for COVID-19 Status: Acute Brief Hospital Course Allergies Allergies Coded Allergies Type Severity Reaction Last Updated Verified Sulfa (Sulfonamide Antibiotics) Allergy Intermediate 03/28/20 Yes simvastatin Allergy Intermediate 03/28/20 Yes Vital Signs Vital Signs Date Time Temp Pulse Resp B/P (MAP) Pulse Ox O2 Delivery O2 Flow Rate FiO2 04/04/20 15:10 97.3 74 18 87/48 (61) 98 Nasal Cannula 2.0 97.3 Brief Hospital Course Mr. Karimi is a 75 old male, admit with chest pain, r/o ACS weakness and debiity were severe he has indwelling dilaudid pump and was very lethargic much of the time Discharge Information Condition at Discharge: Improved Follow Up: Weeks Disposition/Orders: D/C to Another Facility Scheduled Amlodipine Besylate (Amlodipine Besylate) 5 Mg Tablet, 5 MG PO DAILY for htn , (Reported) Entered as Reported by: WILD PEREIRA on 03/28/20904 Last Taken: UNKNOWN on Unknown Date & Time Last Action: Continued on 03/28/20914 by WILD PEREIRA Aspirin (Aspirin Ec) 81 Mg Tablet.dr, 1 TAB PO DAILY for CAD , #30 Ref 3 (Reported) Entered as Reported by: WILD PEREIRA on 03/28/20904 Last Taken: UNKNOWN on Unknown Date & Time Last Action: Continued on 03/28/20914 by WILD PEREIRA Atorvastatin Calcium (Atorvastatin Calcium) 10 Mg Tablet, 40 MG PO QHS for dyslipidemia for 30 Days, #120 Prescribed by: MEME LAGOS MD on 03/29/20 1227 Carvedilol (Carvedilol ) 3.125 Mg Tablet, 3.125 MG PO BIDWMEALS for CARDIAC, (Reported) Entered as Reported by: WILD PEREIRA on 03/28/20904 Last Taken: UNKNOWN on Unknown Date & Time Last Action: Continued on 03/28/20914 by WILD PEREIRA Clonazepam (Clonazepam ) 0.5 Mg Tablet, 0.5 MG PO BID for FOR ANXIETY, (Reported) Entered as Reported by: WILD PEREIRA on 03/28/20904 Last Taken: UNKNOWN on Unknown Date & Time Last Action: Continued on 03/28/20914 by WILD PEREIRA Clopidogrel Bisulfate (Clopidogrel) 75 Mg Tablet, 75 MG PO DAILY for TO PREVENT BLOOD CLOTS, #30 Ref 0 (Reported) Entered as Reported by: WILD PEREIRA on 03/28/20904 Last Taken: UNKNOWN on Unknown Date & Time Last Action: Continued on 03/28/20914 by WILD PEREIRA Escitalopram Oxalate (Lexapro) 5 Mg Tablet, 1 TAB PO DAILY for depression, #30 Ref 2 (Reported) Entered as Reported by: WILD PEREIRA on 03/28/20904 Last Taken: UNKNOWN on Unknown Date & Time Last Action: Converted on 03/28/20914 by WILD PEREIRA Gabapentin (Gabapentin) 800 Mg Tablet, 400 MG PO TID for NEUROGENIC PAIN, (Reported) Entered as Reported by: WILD PEREIRA on 03/28/20904 Last Taken: UNKNOWN on Unknown Date & Time Last Action: Converted on 03/28/20914 by WILD PEREIRA Hydromorphone Hcl (Hydromorphone Hcl) 4 Mg Tablet, 2 MG PO TID for chronic pain , (Reported) Entered as Reported by: WILD PEREIRA on 03/28/20904 Last Taken: UNKNOWN on Unknown Date & Time Last Action: Continued on 03/28/20914 by WILD PEREIRA Trazodone Hcl (Trazodone Hcl) 100 Mg Tablet, 2 TAB PO QHS for insomnia , #30 Ref 1 (Reported) Entered as Reported by: WILD PEREIRA on 03/28/20904 Last Taken: UNKNOWN on Unknown Date & Time Last Action: Continued on 03/28/20914 by WILD PEREIRA Scheduled PRN Acetaminophen (Acetaminophen) 325 Mg Tablet, 2 TAB PO PRN Q4HRS PRN for pain or fever for 30 Days, #30 Ref 0 (Reported) Entered as Reported by: WILD PEREIRA on 03/28/20904 Last Taken: UNKNOWN on Unknown Date & Time Last Action: Continued on 03/28/20914 by WILD PEREIRA Patient Instructions Patient Instructions to skilled Justicifation of Admission Dx: Justifications for Admission: Justification of Admission Dx: No MIQUEL ECHEVERRIA MD Apr 04, 2020 15:19
[2020-04-04] MEDS: ENOXAPARIN 40 MG/0.4 ML SYRINGE. SQ SCH (18:04)
[2020-04-04 19:00] VITALS: BP 114/54
[2020-04-04] MEDS: traZODone 100 MG TABLET. PO SCH (21:23)
[2020-04-04] MEDS: ATORVASTATIN CALCIUM 10 MG TABLET. PO SCH (21:23)
[2020-04-04 23:00] VITALS: BP 112/52
[2020-04-05 03:09] VITALS: BP 111/53
[2020-04-05] MEDS: HYDROmorphone 2 MG TABLET PO PRN (04:33)
[2020-04-05 07:00] VITALS: BP 97/55
[2020-04-05] MEDS: CARVEDILOL 3.125 MG TABLET. PO SCH (08:00)
[2020-04-05] MEDS: CITALOPRAM 10 MG TABLET. PO SCH (08:12)
[2020-04-05] MEDS: CLOPIDOGREL BISULFATE 75 MG TABLET PO SCH (08:12)
[2020-04-05] MEDS: MULTIVITAMIN with MINERAL TABLET. PO SCH (08:12)
[2020-04-05] MEDS: ASCORBIC ACID 500 MG TABLET PO SCH (08:13)
[2020-04-05] MEDS: ASPIRIN ENTERIC COATED 81 MG TABLET.DR. PO SCH (08:13)
[2020-04-05] MEDS: GABAPENTIN 400 MG CAPSULE. PO SCH (08:13)
[2020-04-05] MEDS: clonazePAM 0.5 MG TABLET PO SCH (08:13)
[2020-04-05] MEDS: amLODIPine BESYLATE 5 MG TABLET PO SCH (09:00)
--- NOTE | 2020-04-05 09:11 | NUR ---
BASSAM following. Discussed with RN, awaiting confirmation from [facility] and [facility] on acceptance decision. [facility]AM left voicemail for Jim at [facility], and sent message to Dona at [facility]. [facility] will continue to follow. Addendum: 04/05/20 at 1007 by NIKKI BANEGAS [facility] accepted pt, SW awaiting prescription to fax discharge paperwork. Awaiting transportation time. RN notified. Addendum: 04/05/20 at 1127 by NIKKI BANEGAS Transportation arranged by [facility] between [id number]. Tobin and RN notified.
[2020-04-05 11:00] VITALS: BP 102/60
== END 2020-04-05 13:30 | DRG 313 ==
LOC: ER 01:19 → 6 SOUTH 03:22 → EDBD 03:22 → 4 NORTH 03-29 18:13
PROVIDERS: ADMIT Internal Medicine; ATTEND Internal Medicine
DX: R07.89 Other chest pain (principal); D64.9 Anemia, unspecified; E11.65 Type 2 diabetes mellitus with hyperglycemia; E78.5 Hyperlipidemia, unspecified; E83.42 Hypomagnesemia; F41.0 Panic disorder [episodic paroxysmal anxiety]; F80.81 Childhood onset fluency disorder; J44.9 Chronic obstructive pulmonary disease, unspecified; I25.10 Atherosclerotic heart disease of native coronary artery without angina pectoris; I10 Essential (primary) hypertension; E11.42 Type 2 diabetes mellitus with diabetic polyneuropathy; I87.2 Venous insufficiency (chronic) (peripheral); I89.0 Lymphedema, not elsewhere classified; M19.90 Unspecified osteoarthritis, unspecified site; Z20.828 Contact with and (suspected) exposure to other viral communicable diseases; G89.4 Chronic pain syndrome; Z76.5 Malingerer [conscious simulation]; Z87.442 Personal history of urinary calculi; Z89.511 Acquired absence of right leg below knee; Z95.5 Presence of coronary angioplasty implant and graft; Z88.2 Allergy status to sulfonamides; Z88.8 Allergy status to other drugs, medicaments and biological substances; Z79.899 Other long term (current) drug therapy
CPT/HCPCS: 36415; 71045; 80053; 80061; 81001; 83690; 83735; 83880; 84484; 85025; 93005; 96374; J1650; J2270; J2310; J2405; J3490; P9612; 97530-GP; 97535-GO; 99285-25; G0378; U0003-CS